=== PATIENT | female | born 1950 | race Hispanic/Latino ===

== ENCOUNTER 2017-04-01 15:47 | Inpatient (IN) | payer MEDICARE, MEDICAID ==
[~2017-04-01] VITALS: Ht 160 cm; Wt 90.7 kg
[~2017-04-01 15:47] MED LIST: (None)10 MG OR; ADLT ASA LOW81 MG OR; ADLT ASA LOW81 MG PO; ALLEGRA-D 2424 HOUR PO; ALPRAZOLAM0.25 M1 OR; AMANTADINE100 MG PO; AMLODIPINE10 MG PO; AMOXICILLIN/CL500 MG PO; AMOXICILLIN250 M1 PO; ASPIRIN81 M1 OR; AUGMENTIN500TAB PO; AUGMENTIN875TAB PO; BACTRIM DS1 TAB PO; BACTROBAN2 % EX; BENTYL10 MG PO; CARAFATE PO; CETIRIZ/PSE1 TAB PO; CIPRO XR500 MG PO; CLONIDINE HCL0.1 MG PO; CLONIDINE0.1 MG OR; CLONIDINE0.1 MG PO; CLONIDINE0.2 MG PO; COZAAR25 MG PO; CYCLOBENZAPR10 MG OR; CYCLOBENZAPR10 MG PO; DICLOXACILL500 MG PO; DIFLUCAN100 MG PO; ENALAPRIL20 MG OR; ENALAPRIL20 MG PO; FLEXERIL PO; FLEXERIL5 MG PO; FLONASE NASAL50 MCG; FLONASE SPRAY50 MCG; FLUARIX QUADRIV1 IN1 IM; FUROSEMIDE40 MG PO; GLIPIZIDE5 MG PO; HYDRALAZINE HCL25 MG PO; HYDRALAZINE25 MG PO; HYDROCHLOROT25 MG PO; LASIX20 MG OR; LEVAQUIN500 MG PO; LEVAQUIN750 MG PO; LIORESAL10 MG/TAB PO; LOPRESSOR25 MG OR; LORAZEPAM0.5 MG PO; LORTAB 10 OR; LORTAB 7.5 PO; LORTAB 7.5-3251 TAB PO; LORTAB 7.57.5 MG PO; LOSARTAN POT100 MG PO; LOSARTAN POT25 MG PO; LOTRISONE TOP; LOVASTATIN20 MG OR; LOVASTATIN40 M1 PO; LOVASTATIN40 MG OR; LOVASTATIN40 MG PO; MECLIZINE12.5 M1 PO; MEDDOSEPAK PO; MEDROL DOSEPAK4 MG PO; METFORMIN500 MG PO; METOPROL TAR100 MG OR; METOPROL TAR100 MG PO; MULT VITAMIN PO; MULTI FOR HER 50+ PO; MULTIVITAMI1 PO; NITRO-DUR0.4 MG/HR TD; NITROGLYCERIN TD; NORCO1 TA1 PO; NORVASC10 M1 PO; NYSTATIN100000 M3 TOP; OXYCOD/APAP1 TA4 PO; OXYCODO-APAP1 TAB OR; OXYCONTIN10 MG PO; PERCOCET 5/325M1 TAB OR; PERCOCET 5/325M1 TAB PO; PERCOCET1 TA2 OR; PERCOCET1 TA4 PO; POT CHLORIDE20 ME3 OR; POT CHLORIDE20 ME3 PO; POTASSIUM CHLO20 MEQ PO; PREVACID15 M1 PO; PRILOSEC20 MG OR; PRILOSEC20 MG/CAP PO; PRILOSEC40 MG PO; PROTONIX40 M2 PO; RANITIDINE150 M1 PO; RANITIDINE150 MG PO; ROBITUSSIN AC10 ML PO; SERTRALINE HCL50 MG PO; TEMAZEPAM15 MG PO; TESSALON PER100 MG PO; TIZANIDINE HCL4 MG PO; TIZANIDINE4 MG PO; TOPROL XL50 MG OR; TRAMADOL HCL50 MG PO; ULTRAM50 MG PO; VIBRAMYCIN100 M1 PO; VIBRAMYCIN100 M2 PO; VICODIN OR; WAL-FEX D 1212 HOUR PO; XANAX0.5 MG OR; XARELTO15 MG PO; ZOFRAN ODT4 MG PO; ZOLOFT100 MG OR; ZOLOFT50 MG OR; ZOLOFT50 MG PO; ZOVIRAX800 MG OR; ZPAK; ZPAK PO; ZYRTEC-D AL1 OR; ZYRTEC-D ALG PO; ZYRTEC10 MG PO
[2017-04-05] VITALS (7 sets, daily range): BP systolic 141–164; BP diastolic 60–87
[2017-04-06] VITALS (7 sets, daily range): BP systolic 119–178; BP diastolic 65–80
[2017-04-06 07:24] LABS: HEMATOCRIT 32.4 % (37.0-47.0); HEMOGLOBIN 10.7 g/dl (12.0-16.0); IMMATURE GRANULOCYTES 0.5 % (0.0-1.0); MEAN CELL VOLUME 89.5 fL CALC (80.0-100.0); MEAN CORPUSCULAR HGB 29.6 pG CALC (26.0-32.0); NEUT# 14.4 thou/uL (2.00-7.15); RED BLOOD COUNT 3.62 mill/uL (4.20-5.60); RED CELL DISTRI WIDTH 12.5 % (11.5-15.5)
[2017-04-06 07:38] LABS: ALBUMIN 3.8 g/dL (3.2-5.0); ALKALINE PHOSPHATASE 65 u/l (38-126); ANION GAP 16 (6-22 (CALC)); BILIRUBIN, TOTAL 0.3 mg/dL (0.0-1.4); BUN 17 mg/dL (8-23); BUN/CREATININE RATIO 25 (12-20 (CALC)); CALCIUM 7.9 mg/dL (8.4-10.2); CARBON DIOXIDE 23 mmol/l (22-30); CHLORIDE 106 mmol/l (95-108); CREATININE 0.7 mg/dL (0.5-1.0); GFR > 60 ML/MIN (>=60 (CALC)); GFR FOR AFR.AMER. > 60 ML/MIN (>=60 (CALC)); GLUCOSE 109 mg/dL (82-115); SGOT/AST 51 u/l (9-36); SGPT/ALT 65 u/l (11-66); SODIUM 141 mmol/l (137-146); TOTAL PROTEIN 6.4 g/dL (6.3-8.2)
[2017-04-07 04:40] VITALS: BP 165/71
[2017-04-07 05:59] LABS: HEMATOCRIT 31.1 % (37.0-47.0); HEMOGLOBIN 10.3 g/dl (12.0-16.0); IMMATURE GRANULOCYTES 0.5 % (0.0-1.0); MEAN CELL VOLUME 88.6 fL CALC (80.0-100.0); MEAN CORPUSCULAR HGB 29.3 pG CALC (26.0-32.0); MEAN CORPUSCULAR HGB CONC 33.1 g/L CALC (32.0-36.0); NEUT# 12.32 thou/uL (2.00-7.15); RED BLOOD COUNT 3.51 mill/uL (4.20-5.60); RED CELL DISTRI WIDTH 12.8 % (11.5-15.5)
[2017-04-07 06:08] LABS: ANION GAP 14 (6-22 (CALC)); BUN 17 mg/dL (8-23); BUN/CREATININE RATIO 21 (12-20 (CALC)); CALCIUM 8.7 mg/dL (8.4-10.2); CARBON DIOXIDE 28 mmol/l (22-30); CHLORIDE 97 mmol/l (95-108); CREATININE 0.8 mg/dL (0.5-1.0); GFR > 60 ML/MIN (>=60 (CALC)); GFR FOR AFR.AMER. > 60 ML/MIN (>=60 (CALC)); GLUCOSE 150 mg/dL (82-115); POTASSIUM 3.4 mmol/l (3.5-5.1); SODIUM 136 mmol/l (137-146)
[2017-04-07 07:54] VITALS: BP 147/73
[2017-04-07 12:52] VITALS: BP 174/81
[2017-04-07 16:15] VITALS: BP 197/84
[2017-04-07 17:15] VITALS: BP 189/84
[2017-04-07 20:29] VITALS: BP 144/66
[2017-04-08] VITALS (7 sets, daily range): BP systolic 128–185; BP diastolic 63–84
[2017-04-08 05:42] LABS: HEMATOCRIT 30.9 % (37.0-47.0); HEMOGLOBIN 10.1 g/dl (12.0-16.0)
== END 2017-04-08 16:55 | DRG 470 ==
LOC: ENPENDDIS → MS2 04-05 07:30
PROVIDERS: ADMIT Orthopaedic Surgery; ATTEND Internal Medicine Geriatric Medicine
PROC: 0SRC0J9 Replacement of Right Knee Joint with Synthetic Substitute, Cemented, Open Approach (ICD-10-PCS; principal; 2017-04-05)
DX: M17.11 Unilateral primary osteoarthritis, right knee (principal); I10 Essential (primary) hypertension; E11.9 Type 2 diabetes mellitus without complications; I25.10 Atherosclerotic heart disease of native coronary artery without angina pectoris
CPT/HCPCS: J1650; J2270

== ENCOUNTER 2018-11-12 17:09 | Observation (INO) | payer MEDICARE ==
[~2018-11-12] VITALS: Ht 160 cm; Wt 94.5 kg
--- NOTE | 2018-11-12 17:10 | NUR ---
PT TO ROOM VIA EMS STRETCHER.
--- NOTE | 2018-11-12 17:30 | NUR ---
PATIENT REPORTS COUGH/COLD SYMPTOMS X1 WEEK, REPORTS BEING IN DOCTOR'S OFFICE, EKG COMPLETED SHOWING A FIB, PATIENT REPORTS NEW ONSET. LUNG SOUNDS CLEAR BILATERALLY. DENIES ANY CHEST PAIN AT THIS TIME. SHOWING A-FIB AT A RATE OF 100-120 BPM. CALL LIGHT WITHIN REACH WILL CONTINUE TO MONITOR.
[2018-11-12] MEDS ORDERED: METOPROL TAR25 MG PO (17:32)
[2018-11-12] MEDS ORDERED: PERCOCET1 TA4 PO (17:35)
[2018-11-12 17:45] LABS: HEMATOCRIT 39.6 % (37.0-47.0); HEMOGLOBIN 12.7 g/dl (12.0-16.0); IMMATURE GRANULOCYTES 0.4 % (0.0-5.0); MEAN CORPUSCULAR HGB 28.5 pG CALC (26.0-32.0); MEAN CORPUSCULAR HGB CONC 32.1 g/L CALC (32.0-36.0); NEUT# 12.25 thou/uL (2.00-7.15); RED BLOOD COUNT 4.45 mill/uL (4.20-5.60); RED CELL DISTRI WIDTH 13.3 % (11.5-15.5)
[2018-11-12 18:04] LABS: ANION GAP 15 (6-22 (CALC)); BUN 28 mg/dL (8-23); BUN/CREATININE RATIO 35 (12-20 (CALC)); CARBON DIOXIDE 25 mmol/l (22-30); CHLORIDE 103 mmol/l (95-108); CREATININE 0.8 mg/dL (0.5-1.0); GFR > 60 ML/MIN (>=60 (CALC)); GFR FOR AFR.AMER. > 60 ML/MIN (>=60 (CALC)); POTASSIUM 3.5 mmol/l (3.5-5.1); SODIUM 139 mmol/l (137-146)
--- NOTE | 2018-11-12 18:30 | NUR ---
PATIENT MEDICATED WITH 10 MG OF CARDIZEM SLOW IVP. TOLERATED WELL.
--- NOTE | 2018-11-12 18:40 | NUR ---
AT BEDSIDE TO DISCUSS RESULTS.
--- NOTE | 2018-11-12 18:42 | NUR ---
BEDSIDE REPORT GIVEN TO INDIRA ZAMORANO. PATIENT'S HR 80-100'S IN A-FIB. CARE RELINQUISHED.
--- NOTE | 2018-11-12 18:43 | NUR ---
IN ROOM INTRODUCED SELF TO PT. NO C/O AT THIS TIME.
--- NOTE | 2018-11-12 19:43 | NUR ---
IN ROOM TO DISCUSS CLINICAL FINDINGS WITH PT. VERBALIZED UNDERSTANDING. PT. ALSO MADE AWARE OF ADMISSION.
--- NOTE | 2018-11-12 20:26 | NUR ---
REPORT GIVEN TO ANTHONY JACOBSON.
--- NOTE | 2018-11-12 20:35 | NUR ---
PT. STATES SHE HAS PAIN UNDER HER LEFT BREAST AND SHE IS ALSO NAUSEADED.
--- NOTE | 2018-11-12 21:01 | NUR ---
ORDERS NOW TO ADMIT PT. TO MS.
--- NOTE | 2018-11-12 21:10 | NUR ---
CARDIZEM GTT ORDERED, TO ICU.
--- NOTE | 2018-11-12 21:14 | NUR ---
TO ICU VIA STRETCHER.
[2018-11-12 21:15] VITALS: BP 168/79
--- NOTE | 2018-11-12 21:15 | NUR ---
PT. ARRIVES VIA STRETCHER FROM ER TO ICU ROOM #3. AWAKE, ALERT, ORIENTED X 3. NO DISTRESS. AMBULATORY WITH STEADY GAIT FROM ER STRETCHER TO ICU BED.
[2018-11-12 21:30] VITALS: BP 161/83
[2018-11-12 21:45] VITALS: BP 177/79
[2018-11-12] MEDS ORDERED: NIFEDIPINE ER60 M1 PO (21:51)
[2018-11-12 22:00] VITALS: BP 149/82
--- NOTE | 2018-11-12 22:59 | NUR ---
CARDIZEM DRIP STARTED AT 10 MG/HR AT THIS TIME. WILL CONTINUE TO ASSESS FOR RATE CONTROL/BP.
[2018-11-12 23:00] VITALS: BP 149/91
--- NOTE | 2018-11-12 23:35 | NUR ---
PT. ASSISTED TO BSC AND BACK TO BED AT THIS TIME. PT. REMAINS STABLE ON THE MONITOR. PT. APPEARS TO HAVE CONVERTED BACK TO SINUS RHYTHM. WILL NOTIFY RESP THERAPY FOR REPEAT EKG.
[2018-11-13] VITALS (18 sets, daily range): BP systolic 144–201; BP diastolic 71–107
--- NOTE | 2018-11-13 01:05 | NUR ---
PT. RESTING IN BED WATCHING TELEVISION AT THIS TIME. CARDIZEM DRIP INFUSING AT 10 MG/HR. REMAINS STABLE IN SINUS RHYTHM AT THIS TIME. BP/HR STABLE.
--- NOTE | 2018-11-13 02:36 | NUR ---
PT. C/O 5/10 HEADACHE AT THIS TIME. CARDIZEM DRIP DECREASED TO 5 MG/HR AT THIS TIME. WILL CONTINUE TO MONITOR. MEDICATED WITH PERCOCET PER PHYSICIAN ORDERS. WILL CONTINUE TO ASSESS FOR IMPROVEMENT IN HEADACHE.
--- NOTE | 2018-11-13 04:05 | NUR ---
LAB AT BEDSIDE TO DRAW PATIENT. REMAINS EASILY AROUSABLE TO LIGHT VERBAL STIMULI. NO DISTRESS.
--- NOTE | 2018-11-13 04:33 | NUR ---
PT. WITH INTERMITTENT COUGHING EPISODES. MILD SPUTUM PRODUCTION. HR REMAINS CONTROLLED SINUS IN THE 60-70'S. CARDIZEM DRIP CONTINUES AT 5 MG/HR. REMAINS IN NO DISTRESS.
[2018-11-13 04:35] LABS: HEMOGLOBIN 12.3 g/dl (12.0-16.0); IMMATURE GRANULOCYTES 0.2 % (0.0-5.0); MEAN CELL VOLUME 88.6 fL CALC (80.0-100.0); MEAN CORPUSCULAR HGB 28.7 pG CALC (26.0-32.0); MEAN CORPUSCULAR HGB CONC 32.4 g/L CALC (32.0-36.0); NEUT# 8.58 thou/uL (2.00-7.15); RED BLOOD COUNT 4.29 mill/uL (4.20-5.60); RED CELL DISTRI WIDTH 13.2 % (11.5-15.5)
[2018-11-13 04:54] LABS: ALBUMIN 3.7 g/dL (3.2-5.0); ALKALINE PHOSPHATASE 95 u/l (38-126); AMYLASE 60 u/l (30-110); ANION GAP 12 (6-22 (CALC)); BILIRUBIN, TOTAL 0.4 mg/dL (0.0-1.4); BUN 24 mg/dL (8-23); BUN/CREATININE RATIO 37 (12-20 (CALC)); CARBON DIOXIDE 27 mmol/l (22-30); CHLORIDE 105 mmol/l (95-108); CREATININE 0.6 mg/dL (0.5-1.0); GFR > 60 ML/MIN (>=60 (CALC)); GFR FOR AFR.AMER. > 60 ML/MIN (>=60 (CALC)); LIPASE 177 u/l (23-300); POTASSIUM 3.5 mmol/l (3.5-5.1); SGOT/AST 25 u/l (9-36); SODIUM 141 mmol/l (137-146); TOTAL PROTEIN 6.4 g/dL (6.3-8.2)
[2018-11-13 04:57] LABS: MAGNESIUM 1.4 mg/dL (1.6-2.3)
--- NOTE | 2018-11-13 06:21 | NUR ---
RT AT BEDSIDE FOR AM EKG. PT. REMAINS IN SINUS RHYTHM IN THE 70'S AT THIS TIME. NO DISTRESS NOTED. BP SLIGHTLY ELEVATED. WILL CONTINUE TO MONITOR. CARDIZEM DRIP CONTINUES AT 5 MG/HR AT THIS TIME.
--- NOTE | 2018-11-13 07:52 | NUR ---
PT SLEEPING. EYES CLOSED. RESPIRATIONS EVEN/UNLABORED. CALLBELL W/IN REACH. BREAKFAST TRAY SET ON BEDSIDE TABLE.
--- NOTE | 2018-11-13 08:10 | NUR ---
PT ADMITTED FOR NEW ONSET AFIB. PT NSR ON TELE NOW. CARDIZEM WAS RUNNING AT 5 BUT STOPPED TO ASSESS RHYTHM. CARDIZEM DRIP STOPPED. MAGNESIUM DRIP STARTED. PT DENIES PAIN. DENIES SOB. DENIES N/V/D.
--- NOTE | 2018-11-13 08:26 | NUR ---
PT AT 100% OF BREAKFAST. MINIMAL ASSIST UP TO BSC FOR URINATION. STEADY GAIT.
--- NOTE | 2018-11-13 08:52 | NUR ---
DIETARY @BEDSIDE FOR MEAL PREFERENCES.
--- NOTE | 2018-11-13 09:18 | NUR ---
PT MEDICATED FOR C/O HEADACHE 02/23 ORDERED; CALL TREVIZO WITHIN REACH; NO OTHER COMPLAINTS VOICED; WILL CONTINUE TO MONITOR.
--- NOTE | 2018-11-13 09:28 | NUR ---
PT NSR ON MONITOR. HR 84. NO S/S OF DISTRESS AT THIS TIME. CALLBELL W/IN REACH.
--- NOTE | 2018-11-13 09:45 | NUR ---
2 NEG MRSA SWABS. 3RD SWAB COLLECTED.
--- NOTE | 2018-11-13 09:59 | NUR ---
son called from [place] with code to check on mom. son updated on pts status then transfered him to talk to her.
--- NOTE | 2018-11-13 10:20 | NUR ---
MINIMAL ASSISTANCE UP TO BSC.
--- NOTE | 2018-11-13 10:26 | NUR ---
DR RODRIGUEZ @BEDSIDE.
--- NOTE | 2018-11-13 10:53 | NUR ---
URINE COLLECTED FOR SAMPLE. PT STATE SHE HAD AN U/S ON HER KIDNEYS ON 11/03/[address] MULTANI. AWARE. UPDATED PT ON UPCOMING TESTS ORDERED.
--- NOTE | 2018-11-13 11:08 | NUR ---
DR MULTANI @BEDSIDE WITH PT.
--- NOTE | 2018-11-13 11:15 | NUR ---
LEODAN, CASE MANAGEMENT, @BEDSIDE WITH PT.
--- NOTE | 2018-11-13 11:33 | NUR ---
LAB @BEDSIDE FOR DRAW.
--- NOTE | 2018-11-13 11:40 | NUR ---
PT SITTING UP IN BED, EATING LUNCH. PT FREQUENTLY TALKING ON CELLPHONE.
[2018-11-13 11:59] LABS: URINE BILIRUBIN - DIPSTICK NEGATIVE (NEGATIVE); URINE BLOOD DIPSTICK NEGATIVE (NEGATIVE); URINE COLOR YELLOW; URINE GLUCOSE - DIPSTICK NEGATIVE (NEGATIVE); URINE KETONE NEGATIVE (NEGATIVE); URINE LEUK ESTERASE NEGATIVE (Negative); URINE NITRITE - DIPSTICK NEGATIVE (Negative); URINE PROTEIN - DIPSTICK TRACE mg/dL (NEG-TRACE); URINE UROBILINOGEN - DIPSTICK 0.2 E.U./dL (0.2)
[2018-11-13 12:00] LABS: URINE CLARITY CLEAR
[2018-11-13 12:23] LABS: ALBUMIN 4.1 g/dL (3.2-5.0); BUN 18 mg/dL (8-23); CARBON DIOXIDE 27 mmol/l (22-30); CHLORIDE 100 mmol/l (95-108); CREATININE 0.6 mg/dL (0.5-1.0); GFR > 60 ML/MIN (>=60 (CALC)); GFR FOR AFR.AMER. > 60 ML/MIN (>=60 (CALC)); POTASSIUM 3.5 mmol/l (3.5-5.1); SODIUM 139 mmol/l (137-146)
--- NOTE | 2018-11-13 13:30 | NUR ---
PT BRUSHING OWN TEETH & PARTIAL BATH. CHANGED GOWN.
--- NOTE | 2018-11-13 13:37 | NUR ---
PT OFF UNIT FOR CATSCAN BY WC.
--- NOTE | 2018-11-13 13:55 | NUR ---
HR & HOME HEALTH ADMIN AT BEDSIDE FOR ROUNDING.
--- NOTE | 2018-11-13 13:59 | NUR ---
PT RETURNED FROM RADIOLOGY. ON MONITOR & IVF. NO NEEDS AT THIS TIME. CALLBELL W/IN REACH. PT DENIES S/S OF AFIB. WILL CONTINUE TO MONITOR.
--- NOTE | 2018-11-13 14:34 | NUR ---
US @BEDSIDE FOR ECHO
--- NOTE | 2018-11-13 15:14 | NUR ---
DR WEBSTER DENTURES LAB TECHNICIAN @BEDSIDE ASSESSING PT.
--- NOTE | 2018-11-13 17:08 | NUR ---
PT EDUCATED ON NEW BP MEDS & ETIOLOGY. FAMILY @BEDSIDE WILL GET PT A BP "MACHINE" FOR AT HOME.
--- NOTE | 2018-11-13 17:44 | NUR ---
BIG FAMILY GATHERING IN ROOM. PT SITTING UP IN BED, EATING DINNER. DENIES S/S OF HYPERTENSION.
--- NOTE | 2018-11-13 18:11 | NUR ---
PT ASSISTED UP TO BSC FOR URINATION.
--- NOTE | 2018-11-13 18:20 | NUR ---
PT REQUEST TAPE AROUND IV JLOOP TO FINGER SO HE DOESNT PULL IT OUT.
--- NOTE | 2018-11-13 18:50 | NUR ---
REPORT FROM Berna ROSALES RN. ASSUMED PT. CARE.
--- NOTE | 2018-11-13 20:05 | NUR ---
PT. RESTING IN BED WITH EYES CLOSED IN NO DISTRESS. SNORING RESPIRATIONS. EASILY AROUSABLE TO LIGHT VERBAL STIMULI. ALERT AND ORIENTED X 3. SKIN WARM AND DRY. AFEBRILE. LUNGS CTA. S1/S2 NOTED. BOWEL SOUNDS PRESENT IN ALL QUADS. NO EDEMA NOTED. DISTIL PULSES INTACT. DENIES COMPLAINTS OF HEADACHE OR OTHER PAIN AT THIS TIME. MAE. GIBBS. CALL LIGHT REMAINS WITHIN REACH. UPDATED ON PLAN OF CARE. WILL CONTINUE TO ASSESS.
--- NOTE | 2018-11-13 22:04 | NUR ---
PT. RESTING IN BED WITH EYES CLOSED IN NO DISTRESS. REMAINS SINUS ON THE MONITOR. BP IMPROVED AT THIS TIME. WILL CONTINUE TO ASSESS.
[2018-11-14] VITALS (18 sets, daily range): BP systolic 120–202; BP diastolic 63–95
--- NOTE | 2018-11-14 | NUR ---
PT. CONTNIUES WITH SINUS RHYTHM AT THIS TIME. DENIES COMPLAINTS OF PAIN OR NEED. REMAINS EASILY AROUSABLE TO LIGHT VERBAL STIMULI. CALL LIGHT REMAINS WIHTIN REACH. WILL CONTINUE TO ASSESS.
--- NOTE | 2018-11-14 01:05 | NUR ---
PT. TO BEDSIDE COMMODE. CONTINUES TO DENY COMPLAINS OF PAIN OR NEED.
--- NOTE | 2018-11-14 02:58 | NUR ---
PT. ASSISTED TO BSC. REMAINS ALERT AND ORIENTED X 3. RESPS REMAIN EVEN AND UNLABORED. SKIN WARM AND DRY. APPROX 700 CC OUT AT THIS TIME. REMAIN IN SINUS RHYTHM.
[2018-11-14 05:50] LABS: HEMATOCRIT 37.3 % (37.0-47.0); HEMOGLOBIN 12.1 g/dl (12.0-16.0); IMMATURE GRANULOCYTES 0.3 % (0.0-5.0); MEAN CELL VOLUME 89.2 fL CALC (80.0-100.0); MEAN CORPUSCULAR HGB 28.9 pG CALC (26.0-32.0); MEAN CORPUSCULAR HGB CONC 32.4 g/L CALC (32.0-36.0); NEUT# 8.1 thou/uL (2.00-7.15); RED BLOOD COUNT 4.18 mill/uL (4.20-5.60); RED CELL DISTRI WIDTH 13.2 % (11.5-15.5)
[2018-11-14 05:54] LABS: ALBUMIN 3.6 g/dL (3.2-5.0); ALKALINE PHOSPHATASE 76 u/l (38-126); ANION GAP 12 (6-22 (CALC)); BILIRUBIN, TOTAL 0.4 mg/dL (0.0-1.4); BUN 17 mg/dL (8-23); BUN/CREATININE RATIO 29 (12-20 (CALC)); CARBON DIOXIDE 27 mmol/l (22-30); CHLORIDE 106 mmol/l (95-108); CREATININE 0.6 mg/dL (0.5-1.0); GFR > 60 ML/MIN (>=60 (CALC)); GFR FOR AFR.AMER. > 60 ML/MIN (>=60 (CALC)); MAGNESIUM 1.5 mg/dL (1.6-2.3); POTASSIUM 3.8 mmol/l (3.5-5.1); SGOT/AST 29 u/l (9-36); SODIUM 141 mmol/l (137-146); TOTAL PROTEIN 6.2 g/dL (6.3-8.2)
--- NOTE | 2018-11-14 07:16 | NUR ---
pt awake in bed; no apparent distress noted; pt offers no complaints; assessment completed at this time; pt alert and oriented; admits to improving headache; denies back or neck pain at current; no n/v noted; resp even and unlabored; lungs clear/ deny sob; skin color wnl; ra; hr reg; no edema noted; sr on monitor; abd soft with bs present; no bm noted per parts data writer; pt voiding clear yellow urine without complication; bsc; #18 ems site intact to rw; flushed and patent; no redness or edema noted at site; am meds/ plan of care explained; accucheck 96; call light within reach; will continue to monitor
--- NOTE | 2018-11-14 08:00 | NUR ---
awake in bed; offers no complaints; sr on monitor; iv intact; call light within reach; will continue to monitor
--- NOTE | 2018-11-14 10:08 | NUR ---
resting with eyes closed; no apparent distress noted; sr on monitor; iv intact; call light within reach; will continue to monitor
--- NOTE | 2018-11-14 10:16 | NUR ---
Dr Rasheed present at bedside to assess pt and discuss plan of care
--- NOTE | 2018-11-14 11:00 | NUR ---
Dr Finley present at bedside to assess pt and discuss plan of care
--- NOTE | 2018-11-14 11:51 | NUR ---
awake; sitting on side of bed eating lunch; no apparent distress noted; pt offers no complaints; sister present at bedside; sr on monitor; iv intact; ra; pt deny needs; call light within reach; will continue to monitor
--- NOTE | 2018-11-14 13:30 | NUR ---
pt sitting on side of bed with complaints of nausea; vomiting noted; emess bag and wet wash cloth provided; bp elevated; will continue to monitor closely
--- NOTE | 2018-11-14 14:00 | NUR ---
resting in bed with eyes closed; no apparent distress noted; sr on monitor; bp stable; resp even and unlabored; call light within reach; will continue to monitor
--- NOTE | 2018-11-14 15:25 | NUR ---
awake in bed; visitors present at bedside; pt deny needs; no apparent distress noted; sr on monitor; iv intact; call light within reach; will continue to monitor
--- NOTE | 2018-11-14 15:51 | NUR ---
awake in bed; multiple visitors at bedside; pt offers no complaints; denies pain; no complaints of nausea noted; sr on monitor; iv intact; call light within reach; will continue to monitor
--- NOTE | 2018-11-14 17:20 | NUR ---
accucheck 105; no interventions needed
--- NOTE | 2018-11-14 17:58 | NUR ---
resting in bed; offers no complaints; no apparent distress noted; sr on monitor; iv intact; call light within reach
--- NOTE | 2018-11-14 19:15 | NUR ---
PATIENT RESTING IN BED WATCHING TV WITH SON AT THE BEDSIDE. RESP EVEN AND UNLABORED. ELEVATED BP NOTED. NO S/S OF DISTRESS NOTED. PATIENT ALERT AND ORIENTED. C/O A HEADACHE, WILL MEDICATE PER MD ORDERS. #20 RIGHT HAND, FLUSHED AND FREE OF REDNESS/SWELLING. LUNGS CLEAR, BS PRESENT, SR ON TELE, AND NO EDEMA PRESENT. PATIENT STATES LAST BM WAS 11/13/18. PLAN OF CARE DISCUSSED. PATIENT INFORMED TO CALL WITH ANY QUESTIONS OR CONCERNS. FALL PRECAUTIONS IN PLACE. CALL LIGHT WITHIN REACH. [facility]
--- NOTE | 2018-11-14 19:45 | NUR ---
ACCU CHECK 119
--- NOTE | 2018-11-14 20:04 | NUR ---
HS MEDICATIONS GIVEN EARLY DUE TO PATIENT'S BP.
--- NOTE | 2018-11-14 21:39 | NUR ---
MEDICATED PER MD ORDERS FOR SBP >180
[2018-11-15] VITALS (19 sets, daily range): BP systolic 118–195; BP diastolic 52–98
--- NOTE | 2018-11-15 00:09 | NUR ---
PATIENT AWAKE AND RESTING IN BED WITH THE TV ON. RESP EVEN AND UNLABORED. NO S/S OF DISTRESS NOTED.
--- NOTE | 2018-11-15 02:00 | NUR ---
PATIENT UP TO USE BSC, COMMODE EMPITED AT THIS TIME. RESP EVEN AND UNLABORED. NO S/S OF DISTRESS NOTED.
--- NOTE | 2018-11-15 03:54 | NUR ---
PTIENT RESTIGN WITH EYES CLOSED. RESP EVEN AND UNLABORED. NO S/S OF DISTRESS.
--- NOTE | 2018-11-15 05:49 | NUR ---
PATIENT MEDICATED FOR HIGH BP PER MD ORDERS.
--- NOTE | 2018-11-15 07:00 | NUR ---
resting in bed with eyes closed; easily aroused; offers no complaints; assessment completed at this time; pt alert and oriented; denies pain; no n/v noted; resp even and unlabored; lungs clear; skin color wnl; ra; hr reg; strong pulses; no edema noted; sr on monitor; abd soft with bs present; no bm noted per press writer; no urine to inspect at this time; #20 flushed and patent to rh; no redness or edema noted at site; plan of care/am meds explained; call light within reach; will continue to monitor
--- NOTE | 2018-11-15 08:05 | NUR ---
awake in bed; offers no complaints; no distress noted; sr on monitor; iv intact; call light within reach; will continue to monitor
--- NOTE | 2018-11-15 09:45 | NUR ---
Ayaka Fernandez NP present at bedside to assess pt and discuss plan of care
[2018-11-15 10:06] LABS: CALCULATED LDLCHOLESTEROL 79 mg/dL (62-129 (CALC)); CHOLESTEROL HDL RATIO 3.5 (<4.4 (CALC)); HDL CHOLESTEROL 44 mg/dL (>=40); TOTAL CHOLESTEROL 154 mg/dl (0-199); TOTAL TRIGLYCERIDES 154 mg/dl (30-149); VLDL CHOLESTROL 31 mg/dl (1-41 (CALC))
--- NOTE | 2018-11-15 10:15 | NUR ---
awake in bed; offers no complaints; no apparent distress noted; sr on monitor; denies pain, n/v; iv intact; plan of care/meds explained; call light within reach; will continue to monitor
--- NOTE | 2018-11-15 12:10 | NUR ---
awake in bed; assist to bsc; offers no complaints; iv flushed and patent; no redness or edema noted at site; sr on monitor; am care offered; pt deny needs; call light within reach; will continue to monitor
--- NOTE | 2018-11-15 13:09 | NUR ---
Dr Vargas present at bedside to assess pt and discuss plan of care
--- NOTE | 2018-11-15 14:01 | NUR ---
awake in bed conversing on cell phone; no apparent; distress noted; offers no complaints; iv intact; sr on monitor; will continue to monitor
--- NOTE | 2018-11-15 16:05 | NUR ---
awake in bed; offers no complaints; denies pain; no n/v sr on monitor; iv intact; call light within reach; will continue to monitor
--- NOTE | 2018-11-15 18:02 | NUR ---
awake in bed; no apparent distress noted; pt offers no complaints; iv intact; sr on monitor; tolerated meals; denies pain; bsc; call light within reach
--- NOTE | 2018-11-15 19:10 | NUR ---
awake. denies distress. manager cardiac shows sinus rhythm. #20 rt hand saline lock. po fluids taken fair. voids per bsc. fall precautions & contact isolation conts.
--- NOTE | 2018-11-15 22:00 | NUR ---
watching tv. no c/o voiced. color television console monitor shows sinus rhythm.
[2018-11-16] VITALS (7 sets, daily range): BP systolic 123–178; BP diastolic 46–91
--- NOTE | 2018-11-16 00:01 | NUR ---
eyes closed. no distress.
--- NOTE | 2018-11-16 02:00 | NUR ---
resting quietly. resps even & unlabored. no apparent distress. telemetry monitor shows sinus pablo.
--- NOTE | 2018-11-16 04:00 | NUR ---
eyes closed. no distress. equipment monitor phototypesetting shows sinus pablo.
--- NOTE | 2018-11-16 06:00 | NUR ---
no acute change in condition. collar baster jumpbasting shows sinus rhythm.
--- NOTE | 2018-11-16 07:00 | NUR ---
awake in bed; no apparent distress noted; pt offers no complaints; denies pain; no n/v noted at present; assessment completed at this time; pt alert and oriented; resp even and unlabored; lungs clear; skin color wnl; ra; hr reg; strong pulses; no edema noted; sr on monitor; abd soft with bs present; no bm noted per auto service writer; last bm 11/15/18; voiding clear yellow urine without complication; bsc; #20 flushed and patent to rh; saline locked; no redness or edema noted at site; plan of care/ am meds explained; call light within reach; will continue to monitor
--- NOTE | 2018-11-16 08:10 | NUR ---
awake in bed; offers no complaints; deny needs; sr on monitor; iv intact; will continue to monitor
[2018-11-16 09:27] LABS: HEMOGLOBIN 12.5 g/dl (12.0-16.0); MEAN CELL VOLUME 87.8 fL CALC (80.0-100.0); MEAN CORPUSCULAR HGB 28.2 pG CALC (26.0-32.0); MEAN CORPUSCULAR HGB CONC 32.1 g/L CALC (32.0-36.0); RED BLOOD COUNT 4.44 mill/uL (4.20-5.60); RED CELL DISTRI WIDTH 13.3 % (11.5-15.5)
--- NOTE | 2018-11-16 09:28 | NUR ---
Ayaka Fernandez NP present at bedside to assess pt and discuss plan of care
[2018-11-16 09:53] LABS: ANION GAP 15 (6-22 (CALC)); BUN 20 mg/dL (8-23); BUN/CREATININE RATIO 29 (12-20 (CALC)); CARBON DIOXIDE 27 mmol/l (22-30); CHLORIDE 99 mmol/l (95-108); CREATININE 0.7 mg/dL (0.5-1.0); GFR > 60 ML/MIN (>=60 (CALC)); GFR FOR AFR.AMER. > 60 ML/MIN (>=60 (CALC)); MAGNESIUM 1.6 mg/dL (1.6-2.3); SODIUM 137 mmol/l (137-146)
--- NOTE | 2018-11-16 10:15 | NUR ---
resting in bed with eyes closed; no apparent distress noted; resp unlabored; iv intact; sr on monitor; call light within reach; will continue to monitor
--- NOTE | 2018-11-16 11:23 | NUR ---
bath offered; refused at this time; pt awaiting MD for possible discharge
--- NOTE | 2018-11-16 12:07 | NUR ---
Dr Vargas and JUAN ANTONIO Fernandez present at bedside to assess pt and discuss plan of care
--- NOTE | 2018-11-16 12:10 | NUR ---
awake in bed; no apparent distress noted; pt offers no complaints; iv intact; no redness or edema noted at site; sb-sr on monitor; call light within reach; will continue to monitor
[2018-11-16] MEDS ORDERED: SPIRONOLACT50 M1 PO (12:41)
[2018-11-16] MEDS ORDERED: ELIQUIS5 MG PO (12:41)
[2018-11-16] MEDS ORDERED: CARDIZEM CD120 M1 PO (12:41)
[2018-11-16] MEDS ORDERED: HYDRALAZINE100 MG PO (12:41)
--- NOTE | 2018-11-16 13:40 | NUR ---
Discharge instructions given. Patient verbalizes understanding of same. Discharged in stable condition via Wheelchair to Home with family. All belongings sent with pt.
== END 2018-11-16 13:40 | disposition home or self-care (01) ==
LOC: ED 17:09 → ED-I 18:29 → ED 18:38 → ICU 18:48
PROVIDERS: Family Medicine; Internal Medicine Nephrology; Nurse Practitioner Family; ADMIT Internal Medicine Nephrology; ATTEND Internal Medicine Nephrology
DX: I48.0 Paroxysmal atrial fibrillation (principal); I10 Essential (primary) hypertension; I16.0 Hypertensive urgency; E11.9 Type 2 diabetes mellitus without complications; I25.10 Atherosclerotic heart disease of native coronary artery without angina pectoris; E78.5 Hyperlipidemia, unspecified; E83.42 Hypomagnesemia; M19.90 Unspecified osteoarthritis, unspecified site; E66.9 Obesity, unspecified; I34.0 Nonrheumatic mitral (valve) insufficiency; Z68.36 Body mass index [BMI] 36.0-36.9, adult; Z95.5 Presence of coronary angioplasty implant and graft; Z79.84 Long term (current) use of oral hypoglycemic drugs
CPT/HCPCS: J3475

== ENCOUNTER 2018-11-29 10:53 | Emergency (ER) | payer MEDICARE, MEDICAID ==
[~2018-11-29] VITALS: Ht 160 cm; Wt 93.6 kg
[~2018-11-29 10:53] MED LIST changes: +CARDIZEM CD120 M1 PO; +ELIQUIS5 MG PO; +HYDRALAZINE100 MG PO; +METOPROL TAR25 MG PO; +NIFEDIPINE ER60 M1 PO; +SPIRONOLACT50 M1 PO
[2018-11-29 11:50] VITALS: BP 175/87
== END 2018-11-29 11:50 | disposition home or self-care (01) ==
LOC: ED 10:53
PROC: 0HQ5XZZ Repair Chest Skin, External Approach (ICD-10-PCS; principal; 2018-11-29)
DX: S21.112A Laceration without foreign body of left front wall of thorax without penetration into thoracic cavity, initial encounter (principal); R58 Hemorrhage, not elsewhere classified; W50.4XXA Accidental scratch by another person, initial encounter; Y92.009 Unspecified place in unspecified non-institutional (private) residence as the place of occurrence of the external cause; Z79.01 Long term (current) use of anticoagulants; I10 Essential (primary) hypertension

== ENCOUNTER 2020-02-20 08:26 | Inpatient (IN) | payer MEDICARE ==
[2020-02-20] VITALS (23 sets, daily range): BP systolic 134–233; BP diastolic 59–123
[~2020-02-20] VITALS: Ht 160 cm; Wt 98.1 kg
--- NOTE | 2020-02-20 08:26 | NUR ---
PATIENT TO ROOM6 FOR BEDSIDE TRIAGE AND PHYSICIAN AT BEDSIDE
--- NOTE | 2020-02-20 08:30 | NUR ---
EDP AT BEDSIDE, RESP TACHYPNEIC, LUNGS SOUNDS WITH POOR AERATION, O2 SAT 89% ON RA. PT STATES SHE AWOKE VERY SOB. JESSICA COLD OR COUGH. NO VISIBLE SWELLING. AFEBRILE
--- NOTE | 2020-02-20 08:57 | NUR ---
PT SITTING UPRIGHT, SKIN DRY, RESP LESS LABORED, TOELRATIGN BIPAP WELL. O2 SAT 98%. IV FLUIDS AND MEDS INFUSING WELL.
[2020-02-20 08:59] LABS: HEMOGLOBIN 12.9 g/dl (12.0-16.0); IMMATURE GRANULOCYTES 0.3 % (0.0-5.0); MEAN CORPUSCULAR HGB 27.7 pG CALC (26.0-32.0); MEAN CORPUSCULAR HGB CONC 31.5 g/dL CAL (32.0-36.0); NEUT# 9.08 thou/uL (2.00-7.15); RED BLOOD COUNT 4.66 mill/uL (4.20-5.60); RED CELL DISTRI WIDTH 13.5 % (11.5-15.5)
[2020-02-20 09:18] LABS: ALBUMIN 4.5 g/dL (3.2-5.0); ANION GAP 12 (6-22 (CALC)); BILIRUBIN, TOTAL 0.5 mg/dL (0.0-1.4); BUN 19 mg/dL (8-23); BUN/CREATININE RATIO 24 (12-20 (CALC)); CARBON DIOXIDE 31 mmol/l (22-30); CHLORIDE 102 mmol/l (95-108); CREATININE 0.8 mg/dL (0.5-1.0); D-DIMER 0.58 mg/L (0.19-0.60); GFR > 60 ML/MIN (>=60 (CALC)); GFR FOR AFR.AMER. > 60 ML/MIN (>=60 (CALC)); INTERNATIONAL NORMALIZED RATIO 1.1 RATIO (0.7-1.3); POTASSIUM 4.1 mmol/l (3.5-5.1); PROTHROMBIN TIME 11.5 SECONDS (9.0-12.5); SODIUM 140 mmol/l (137-146)
[2020-02-20 09:22] LABS: ALKALINE PHOSPHATASE 121 u/l (38-126); SGOT/AST 74 u/l (9-36); TOTAL PROTEIN 7.7 g/dL (6.3-8.2)
--- NOTE | 2020-02-20 10:00 | NUR ---
RECIEVED REPORT BY XIOMARA Coronel
--- NOTE | 2020-02-20 11:00 | NUR ---
PT ON BIPAP, AND VITALS WNL. PT DENIES ANY DISTRESS. SHE IS NOTIFIED OF PENDING TRANSPORTATION TO RADIOLOGY FOR CT. PT VERBALIZED UNDERSTANDING. CALL LIGHT WITHIN REACH
--- NOTE | 2020-02-20 11:45 | NUR ---
PT REMOVED OFF OF BIPAP MACHINE AND PLACED ON HIGH FLOW O2 NC BY RESPIRATORY. PT NOTIFIED OF SIGNS OF SOB AND CALL LIGHT WITHIN REACH FOR IF ASSISTANCE IS NEEDED AND IF THOSE SIGNS ARISE.
[2020-02-20 12:03] LABS: URINE BILIRUBIN - DIPSTICK NEGATIVE (NEGATIVE); URINE BLOOD DIPSTICK NEGATIVE (NEGATIVE); URINE COLOR YELLOW; URINE GLUCOSE - DIPSTICK NEGATIVE (NEGATIVE); URINE KETONE NEGATIVE (NEGATIVE); URINE LEUK ESTERASE NEGATIVE (NEGATIVE); URINE NITRITE - DIPSTICK NEGATIVE (Negative); URINE PROTEIN - DIPSTICK 30 mg/dL (NEG-TRACE); URINE SPECIFIC GRAVITY 1.015; URINE UROBILINOGEN - DIPSTICK 0.2 E.U./dL (0.2)
[2020-02-20 12:13] LABS: URINE SQUAMOUS EPITHELIAL CELL FEW EPI/hpf (0-FEW)
[2020-02-20 12:14] LABS: URINE MUCUS FEW hpf (NONE-FEW)
--- NOTE | 2020-02-20 12:30 | NUR ---
PT RESTING ON STRETCHER, DENIES ANY NEEDS. SHE IS NOTIFIED OF PENDING ADMISSION
[2020-02-20] MEDS ORDERED: COZAAR50 MG PO (12:55)
[2020-02-20] MEDS ORDERED: FUROSEMIDE20 MG PO (13:00)
--- NOTE | 2020-02-20 13:40 | NUR ---
CALLED SATURNINO FOR REPORT
--- NOTE | 2020-02-20 14:10 | NUR ---
TRANSPORTED PT TO ICU STABLE AND IN NO DISTRESS. CARE ASSUMED TO SATURNINO Admission Note Report Given to: Transported by: Wheelchair X Stretcher Transported with: X Nurse Transporter X Patent IV X O2 X Licensed Practical Nurse Clinic Nurse Location: X ICU [facility]
--- NOTE | 2020-02-20 14:45 | NUR ---
female pt received to ICU bed 8 via stretcher accompained by Magaly Castro RN in stable condition; ambulatory to bsc then bed with steady gait; admission assessment completed at this time; pt alert and oriented; denies pain; no n/v noted; c/c of sob starting at 0500 this am; resp even and unlabored; lungs clear/ rhonchi bases; skin color wnl; o2 per nc hi kylie at 10L; streaming media specialist cough noted; hr reg; strong pulses; no edema noted; sr on monitor; abd soft/ distended with bs present; formed bm noted; pt voiding without complication; bsc; #18 patent to rac with ivf infusing without complication; #20 in lw flushed and patent; plan of care/ meds explained; precautions explained; call light within reach; will continue to monitor
--- NOTE | 2020-02-20 15:15 | NUR ---
Dr Vargas called per staff in regards to cozaar order; pt states she normally takes 100mg of cozaar; orders received and on chart
--- NOTE | 2020-02-20 15:45 | NUR ---
Dr Vargas notified per staff with elevated bp of 226/116; MD aware pt received apresoline 1344; also informed of ivf/ bolus infusing (initiated in ER); orders received to discontinue IVf and give additional apresoline;
--- NOTE | 2020-02-20 16:00 | NUR ---
PT MEDICATED WITH HYDRALAZINE 10MG IV PER MD ORDER FOR ADDITIONAL DOSE. PURE WICK PLACED. PT TOLERATED WELL.
--- NOTE | 2020-02-20 16:20 | NUR ---
awake in bed; no apparent distress noted; pt offers no complaints; iv intact; sr on monitor; RT at bedside; o2 titrated to 5L high flow; call light within reach; will continue to monitor
--- NOTE | 2020-02-20 17:14 | NUR ---
Dr Vargas called per staff in regards to sustained elevated BP and accuchecks; manual BP 220/115; accucheck 223; orders received and on chart
--- NOTE | 2020-02-20 18:01 | NUR ---
awake in bed eating dinner; no apparent distress noted; pt offers no complaints; iv intact; cardene gtt infusing at 5mg/hr; no redness or edema noted at site; sr on monitor; o2 per nc; pt deny needs; call light within reach
--- NOTE | 2020-02-20 18:38 | NUR ---
pt belongings and home meds released with family to take home as per request;
--- NOTE | 2020-02-20 19:30 | NUR ---
awake. watching tv. denies resp diff. o2 cont per nc. beam builder shows sinus rhythm hr 88. #20 lt wrist saline lock. #18 lac cardene gtt infusing @ 2.5mg/hr. po fluids taken well. pure wick cath in place. urine clear yellow.
--- NOTE | 2020-02-20 19:30 | NUR ---
fall & air/contact precautions cont.
--- NOTE | 2020-02-20 21:00 | NUR ---
bp 136/63. sachin mireles/neftali.
[2020-02-21] VITALS (21 sets, daily range): BP systolic 124–176; BP diastolic 59–93
--- NOTE | 2020-02-21 00:01 | NUR ---
eyes closed. no distress. monitoring analyst shows sinus rhythm pacs hr 68
--- NOTE | 2020-02-21 02:00 | NUR ---
resting quietly. resps even & unlabored. no apparent distress.
--- NOTE | 2020-02-21 04:30 | NUR ---
blood drawn & sent to lab.
[2020-02-21 05:08] LABS: HEMATOCRIT 35.8 % (37.0-47.0); HEMOGLOBIN 11.7 g/dl (12.0-16.0); IMMATURE GRANULOCYTES 0.7 % (0.0-5.0); MEAN CELL VOLUME 85.9 fL CALC (80.0-100.0); MEAN CORPUSCULAR HGB 28.1 pG CALC (26.0-32.0); MEAN CORPUSCULAR HGB CONC 32.7 g/dL CAL (32.0-36.0); NEUT# 12.24 thou/uL (2.00-7.15); RED BLOOD COUNT 4.17 mill/uL (4.20-5.60); RED CELL DISTRI WIDTH 13.7 % (11.5-15.5)
[2020-02-21 05:22] LABS: ALKALINE PHOSPHATASE 91 u/l (38-126); ANION GAP 12 (6-22 (CALC)); BILIRUBIN, TOTAL 0.5 mg/dL (0.0-1.4); BUN 28 mg/dL (8-23); BUN/CREATININE RATIO 35 (12-20 (CALC)); C-REACTIVE PROTEIN 2.4 mg/dL (0-0.9); CARBON DIOXIDE 28 mmol/l (22-30); CHLORIDE 99 mmol/l (95-108); CREATININE 0.8 mg/dL (0.5-1.0); GFR > 60 ML/MIN (>=60 (CALC)); GFR FOR AFR.AMER. > 60 ML/MIN (>=60 (CALC)); POTASSIUM 3.4 mmol/l (3.5-5.1); SGOT/AST 37 u/l (9-36); SODIUM 137 mmol/l (137-146); TOTAL PROTEIN 6.9 g/dL (6.3-8.2)
--- NOTE | 2020-02-21 06:00 | NUR ---
eyes closed. no distress. air intelligence officer shows sinus rhythm hr 62.
--- NOTE | 2020-02-21 07:20 | NUR ---
pt resting in bed with eyes closed; no apparent distress noted; easily aroused; pt offers no complaints; assessment completed at this time; pt alert and oriented; denies pain; no n/v noted; resp even and unlabored; lungs clear; skin color wnl; o2 per nc at 5L high flow; interventional radiology rn cough noted; hr reg; strong pulses; no edema noted; sr on monitor; abd soft with bs present; no bm noted per commercial underwriter; purewick intact; no urine to inspect at this time; bsc; #18 to rac, #20 to lw; sites flushed and patent; no redness or edema noted at site; plan of care/ am meds explained; call light within reach; will continue to monitor
--- NOTE | 2020-02-21 08:00 | NUR ---
awake in bed; offers no complaints; set up for breakfast; purewick removed; bsc in place; sr on monitor; call light within reach; will continue to monitor
--- NOTE | 2020-02-21 09:40 | NUR ---
Dr Vargas present at bedside to assess pt and discuss plan of care
--- NOTE | 2020-02-21 10:00 | NUR ---
resting in bed; no apparent distress noted; pt offers no complaints; iv intact and patent; abt infusing without complication; sr/pac on monitor; o2 per nc; call light within reach; will continue to monitor
--- NOTE | 2020-02-21 12:20 | NUR ---
awake in bed; no apparent distress noted; pt offers no complaints; o2 per nc; sr/pac on monitor; iv intact; call light within reach; will continue to monitor
--- NOTE | 2020-02-21 14:07 | NUR ---
resting in bed with eyes closed; no apparent distress noted; resp even and unlabored; iv's intact; o2 per nc; sr/pac on monitor; call light within reach; will continue to monitor
--- NOTE | 2020-02-21 15:43 | NUR ---
o2 titrated to 3L NC; will continue to monitor
--- NOTE | 2020-02-21 16:15 | NUR ---
awake; staff at bedside for asssited bath; complete linen change; sr on on monitor; o2 per nc at 3L o2 sat 98%; no exertional sob noted; call light within reach; will continue to monitor
--- NOTE | 2020-02-21 18:04 | NUR ---
awake in bed; offers no complaints; iv's intact and patent; no redness or edema noted at site; afib on monitor; deny needs; call light within reach
--- NOTE | 2020-02-21 19:30 | NUR ---
awakens easily. denies distress. court recording monitor shows a fib hr 96. #18 rac & #20 lt wrist saline locks. po fluids taken well. voids per bsc. fall, air/contact precautions cont.
--- NOTE | 2020-02-21 22:00 | NUR ---
eyes closed. no distress. teletypesetter monitor shows a fib hr 92.
[2020-02-22] VITALS (11 sets, daily range): BP systolic 132–190; BP diastolic 72–106
--- NOTE | 2020-02-22 02:00 | NUR ---
restingquietly. resps even & unlabored. no apparent distress.
--- NOTE | 2020-02-22 04:00 | NUR ---
resting quietly. resps even & unlabored. no apparent distress.
--- NOTE | 2020-02-22 06:00 | NUR ---
no acute change in condition this shift. air sampling and monitoring shows a fib hr 76.
--- NOTE | 2020-02-22 06:45 | NUR ---
RECEIVED REPORT FROM JERMAIN BORREGO. CARE ASSUMED.
--- NOTE | 2020-02-22 07:00 | NUR ---
PT RESTING IN BED AWAKE. PT IS ALERT AND ORIENTED X3. SHIFT ASSESSMENT COMPLETED AT THIS TIME. IV PATENT X2. CALL LIGHT IN REACH. WILL CONTINUE TO MONITOR.
--- NOTE | 2020-02-22 07:40 | NUR ---
PT SET UP FOR AM MEAL.
--- NOTE | 2020-02-22 09:00 | NUR ---
DR NICOLAS AT BEDSIDE AT THIS TIME.
--- NOTE | 2020-02-22 10:00 | NUR ---
PT RESTING IN BED WATCHING TV. RESP ARE EVEN AND UNLABORED. NO DISTRESS NOTED CALL LIGHT IN REACH. WILL CONTINUE TO MONITOR.
--- NOTE | 2020-02-22 11:30 | NUR ---
PT SET UP FOR NOON MEAL
--- NOTE | 2020-02-22 12:41 | NUR ---
PT RESTING IN BED AWAKE AND WATCHING TV. RESP ARE EVEN AND UNLABORED. NO DISTRESS NOTED. CALL LIGHT IN REACH. WILL CONTINUE TO MONITOR.
--- NOTE | 2020-02-22 13:53 | NUR ---
REPORT CALLED TO SALMA JACOBSON ON [facility] [place].
--- NOTE | 2020-02-22 14:10 | NUR ---
PT TO [facility] VIA WHEELCHAIR ACCOMPANIED BY BERNA SAXENA. PT IN STABLE CONDITION.
--- NOTE | 2020-02-22 18:47 | NUR ---
PT REMAINS AT REST IN THE BED, NO DISTRESS, NO COMPLAINTS.
--- NOTE | 2020-02-22 21:03 | NUR ---
ASSESSMENT COMPLETED. NO DISTRESS NOTED; DENIES NEEDS/PAIN. NO SOB NOTED AND DENIES COUGH. REPORTS BM TODAY. ENCOURAGED TO CALL FOR ANY NEEDS. CALL LIGHT IS IN REACH.
--- NOTE | 2020-02-22 23:49 | NUR ---
PT. MEDICATED WITH ORDERED PRN APRESOLINE FOR ELEVATED B/P 186/104; WILL REASSESS. PT. DENIES NEEDS. CALL LIGHT IS IN REACH.
[2020-02-23 00:39] VITALS: BP 158/75
--- NOTE | 2020-02-23 00:49 | NUR ---
MEDICATED WITH ORDERED PRN PERCOCET FOR LOPEZ AND KNEE PAIN.
[2020-02-23 04:11] VITALS: BP 134/72
--- NOTE | 2020-02-23 04:11 | NUR ---
PT. RESTING IN BED WITH NO DISTRESS NOTED; DENIES NEEDS/PAIN. VSS. NO DISTRESS NOTED; ENCOURAGED TO CALL FOR ANY NEEDS. AM LABS OBTAINED.
[2020-02-23 06:02] LABS: HEMATOCRIT 39.4 % (37.0-47.0); HEMOGLOBIN 12.5 g/dl (12.0-16.0); IMMATURE GRANULOCYTES 0.2 % (0.0-5.0); MEAN CELL VOLUME 87.9 fL CALC (80.0-100.0); MEAN CORPUSCULAR HGB 27.9 pG CALC (26.0-32.0); MEAN CORPUSCULAR HGB CONC 31.7 g/dL CAL (32.0-36.0); NEUT# 9.65 thou/uL (2.00-7.15); RED BLOOD COUNT 4.48 mill/uL (4.20-5.60); RED CELL DISTRI WIDTH 13.6 % (11.5-15.5)
[2020-02-23 06:10] LABS: ALBUMIN 3.7 g/dL (3.2-5.0); ALKALINE PHOSPHATASE 88 u/l (38-126); ANION GAP 10 (6-22 (CALC)); BILIRUBIN, TOTAL 0.5 mg/dL (0.0-1.4); BUN 22 mg/dL (8-23); BUN/CREATININE RATIO 31 (12-20 (CALC)); C-REACTIVE PROTEIN 0.9 mg/dL (0-0.9); CARBON DIOXIDE 29 mmol/l (22-30); CHLORIDE 101 mmol/l (95-108); CREATININE 0.7 mg/dL (0.5-1.0); GFR > 60 ML/MIN (>=60 (CALC)); GFR FOR AFR.AMER. > 60 ML/MIN (>=60 (CALC)); POTASSIUM 3.2 mmol/l (3.5-5.1); SGOT/AST 42 u/l (9-36); SODIUM 137 mmol/l (137-146); TOTAL PROTEIN 6.5 g/dL (6.3-8.2)
[2020-02-23 07:45] VITALS: BP 139/86
--- NOTE | 2020-02-23 09:00 | NUR ---
PT IS ALERT AND ORIENTED X 3. LUNGS CLEAR, RA. PT AMBULATORY IN ROOM WITH STEADY GAIT. PT PROVIDED SUPPLEMENTAL POTASSIUM PER 3.2 LEVEL. NO COMPLAINTS, NO EVIDENCE OF DISTRESS.
--- NOTE | 2020-02-23 10:06 | NUR ---
02/22/20 PT screen Patient would benefit from intervention if medical is in agreement
[2020-02-23 10:40] VITALS: BP 133/75
[2020-02-23] MEDS ORDERED: ZITHROMAX250 MG PO (10:56)
--- NOTE | 2020-02-23 14:49 | NUR ---
PT HAS BEEN SEEN BY DR SANDERS AND [employer] THIS MORNING, HAS BEEN DISCHARGED TO HOME. PT DID COMPLETE A 6 MINUTE WALK TEST PRIOR TO DISCHARGE, LOWEST SAT WAS 94%. PT DID HAVE HOME HEALTH ORDER. PT VERBALIZED UNDERSTANDING OF DC INSTRUCTIONS, TAKEN BY WHEELCHAIR TO LOBBY. PT LEAVES [facility] IN STABLE CONDITION, NO DISTRESS, NO COMPLAINTS.
== END 2020-02-23 14:30 | disposition home health service (06) | DRG 193 ==
LOC: ED 08:26 → ED-I 12:29 → ED 12:39 → ED-I 12:40 → MS2 12:40 → ICU 12:40 → MS2 02-22 14:08
PROVIDERS: Student in an Organized Health Care Education/Training Program; ADMIT Internal Medicine; ATTEND Internal Medicine
PROC: 5A09357 Assistance with Respiratory Ventilation, Less than 24 Consecutive Hours, Continuous Positive Airway Pressure (ICD-10-PCS; principal; 2020-02-20)
DX: J18.9 Pneumonia, unspecified organism (principal); J96.01 Acute respiratory failure with hypoxia; I16.0 Hypertensive urgency; I10 Essential (primary) hypertension; I48.0 Paroxysmal atrial fibrillation; E11.9 Type 2 diabetes mellitus without complications; Z79.84 Long term (current) use of oral hypoglycemic drugs; Z95.5 Presence of coronary angioplasty implant and graft; Z79.01 Long term (current) use of anticoagulants
CPT/HCPCS: J3475; Q9967

== ENCOUNTER 2020-12-31 10:33 | Inpatient (IN) | payer MEDICARE ==
[2020-12-31] VITALS (15 sets, daily range): BP systolic 111–148; BP diastolic 55–77
[~2020-12-31] VITALS: Ht 152.4 cm; Wt 97.0 kg
[~2020-12-31 10:33] MED LIST changes: +COZAAR50 MG PO; +FUROSEMIDE20 MG PO; +ZITHROMAX250 MG PO
--- NOTE | 2020-12-31 10:50 | NUR ---
PT WHEELED BACK TO ROOM AND IMMEDIATLY CHANGED INTO GOWN. PT PLACED ON OXYGEN DUE TO O2 SAT OF 80%.
[2020-12-31 11:03] LABS: HEMATOCRIT 36.6 % (37.0-47.0); HEMOGLOBIN 11.5 g/dl (12.0-16.0); IMMATURE GRANULOCYTES 0.3 % (0.0-5.0); MEAN CELL VOLUME 89.5 fL CALC (80.0-100.0); MEAN CORPUSCULAR HGB 28.1 pG CALC (26.0-32.0); MEAN CORPUSCULAR HGB CONC 31.4 g/dL CAL (32.0-36.0); NEUT# 13.4 thou/uL (2.00-7.15); RED BLOOD COUNT 4.09 mill/uL (4.20-5.60)
[2020-12-31] MEDS ORDERED: GABAPENTIN100 MG PO (11:08)
[2020-12-31] MEDS ORDERED: OLMESARTAN MEDO40 MG (11:08)
[2020-12-31] MEDS ORDERED: GLIPIZIDE5 MG PO (11:09)
[2020-12-31] MEDS ORDERED: SERTRALINE HCL50 MG PO (11:10)
[2020-12-31] MEDS ORDERED: AMLODIPINE BESY10 MG PO (11:10)
[2020-12-31] MEDS ORDERED: HYDROCHLOROTH12.5 M1 PO (11:11)
[2020-12-31] MEDS ORDERED: FLECAINIDE50 MG PO (11:12)
[2020-12-31] MEDS ORDERED: METOPROL TAR25 MG PO (11:12)
[2020-12-31] MEDS ORDERED: METFORMIN HCL1000 MG PO (11:13)
[2020-12-31] MEDS ORDERED: LOVASTATIN40 M1 PO (11:14)
[2020-12-31] MEDS ORDERED: ELIQUIS5 MG PO (11:14)
[2020-12-31 11:15] LABS: ALBUMIN 4.7 g/dL (3.2-5.0); AMYLASE 85 u/l (30-110); ANION GAP 15 (6-22 (CALC)); BILIRUBIN, TOTAL 0.6 mg/dL (0.0-1.4); BUN 24 mg/dL (8-23); BUN/CREATININE RATIO 28 (12-20 (CALC)); CARBON DIOXIDE 30 mmol/l (22-30); CHLORIDE 99 mmol/l (95-108); CREATININE 0.8 mg/dL (0.5-1.0); GFR > 60 ML/MIN (>=60 (CALC)); GFR FOR AFR.AMER. > 60 ML/MIN (>=60 (CALC)); LIPASE 129 u/l (23-300); POTASSIUM 3.8 mmol/l (3.5-5.1); SODIUM 141 mmol/l (137-146); TOTAL PROTEIN 7.7 g/dL (6.3-8.2)
[2020-12-31] MEDS ORDERED: IRON SLOW RELEA45 MG PO (11:15)
[2020-12-31 11:20] LABS: ALKALINE PHOSPHATASE 133 u/l (38-126); SGOT/AST 76 u/l (9-36)
[2020-12-31 11:29] LABS: ACT PARTIAL THROMBO TIME 29.3 SECONDS (20.0-32.5); INTERNATIONAL NORMALIZED RATIO 1.1 RATIO (0.7-1.3); PROTHROMBIN TIME 11.6 SECONDS (9.0-12.5)
--- NOTE | 2020-12-31 11:30 | NUR ---
PLACED PT ON BIPAP PER MD ORDER FOR ABG RESULTS AND INCREASED WOB. BLADE BENDER FURNACE TENDER TO MONITOR. PT IN CT CURRENTLY.
[2020-12-31 11:32] LABS: D-DIMER 0.76 mg/L (0.19-0.60)
[2020-12-31 11:45] LABS: TSH, 3RD GENERATION 4.95 uIU/mL (0.47 - 4.68)
--- NOTE | 2020-12-31 12:00 | NUR ---
Reassessment of patient completed. No distress noted.
--- NOTE | 2020-12-31 13:00 | NUR ---
PT ADMITTED TO ICU. REPORT CALLED TO BRANNON JACOBSON.
--- NOTE | 2020-12-31 13:08 | NUR ---
PT ARRIVED TO ICU ROOM 7 VIA STRETCHER IN ER STAFF; ALERT AND ORIENTED X3; RESPIRATIONS EVEN AND UNLABORED ON NON REBREATHER. STOOD AND AMBULATED TO BSC TO VOID AND THEN TO BED; RESPIRATIONS SLIGHTLY LABORED WITH EXERTION; SPO2 86-87 WHEN TALKING; BIPAP PLACED BY RT 16/8 60% FIO2. DENIES PAIN CURRENTLY. LUNGS ARE CLEAR. #20G TO RAC APPEARS HEALTHY AND FLUSHES. ORIENTED TO ROOM AND CALL LIGHT SYSTEM. POC DISCUSSED; PT ENCOURAGED TO VERBALIZE CONCERNS. SAFETY MEASURES IN PLACE. CALL LIGHT WITHIN REACH.
--- NOTE | 2020-12-31 13:26 | NUR ---
TRANSPORTED PT TO ICU. NAD. VSS. PT COMFORTABLE AND CHRISTOPHER NIV WELL AT THIS TIME. RN IN ROOM C PT. NAD. VSS. STABILIZER OPERATOR TO MONITOR.
--- NOTE | 2020-12-31 17:15 | NUR ---
RT AT BEDSIDE TO REMOVE BIPAP MASK; PT NOW ON 3L VIA NC; SPO2 92%. SITTING UP FOR DINNER. IV FLUIDS NOW INFUSING AT 80 ML/HR PER ORDER. CALL LIGHT WITHIN REACH.
--- NOTE | 2020-12-31 17:41 | NUR ---
PLACED PT ON 3LPM NC PER DINNER. PT CHRISTOPHER WELL AT THIS TIME. RN AWARE. PT STATES SHE FEELS MUCH BETTER CURRENTLY. SECTION SUPERVISOR TO MONITOR.
--- NOTE | 2020-12-31 19:45 | NUR ---
BEDRESTING. WATCHING TV. STATES BREATHING BETTER. RESP EVEN AND NONLABORED. O2 AT 3L VIA N/C-TOLERATING WELL. NO COUGH NOTED
--- NOTE | 2020-12-31 21:15 | NUR ---
HS MEDS GIVEN RX. HAS HAD ELIQUES X 2 DOSES TODAY. NEXT DOSE DUE IN AM. HOME MEDSICATIONS LABELED AND TO GO TO PHARMACY IN AM. NS INFUSING RX. EDUCATION CONCERNING MEDICATION ADMINISTRATION PROVIDED-INCLUDING INSULIN WHILE ON STERIODS IN HOSPITAL. PT ALREADY AWARE OF THIS
--- NOTE | 2020-12-31 23:00 | NUR ---
WATCHING TV. RESP EVEN AND NONLABORED. NO COUGH NOTED. N/C AT THIS TIME
[2021-01-01] VITALS (22 sets, daily range): BP systolic 124–193; BP diastolic 61–86
--- NOTE | 2021-01-01 00:52 | NUR ---
BEDRESTING. DOZING. RESP EVEN AND NONLABORED. SAT LOW 90'S ON 3L PER N/C
--- NOTE | 2021-01-01 02:10 | NUR ---
BEDRESITNG. EYES CLOSED. TV OFF
[2021-01-01 05:45] LABS: HEMATOCRIT 33.2 % (37.0-47.0); HEMOGLOBIN 10.3 g/dl (12.0-16.0); IMMATURE GRANULOCYTES 1.1 % (0.0-5.0); MEAN CELL VOLUME 88.8 fL CALC (80.0-100.0); MEAN CORPUSCULAR HGB 27.5 pG CALC (26.0-32.0); RED BLOOD COUNT 3.74 mill/uL (4.20-5.60); RED CELL DISTRI WIDTH 13.1 % (11.5-15.5)
[2021-01-01 06:09] LABS: ALKALINE PHOSPHATASE 90 u/l (38-126); ANION GAP 12 (6-22 (CALC)); BILIRUBIN, TOTAL 0.6 mg/dL (0.0-1.4); BUN 29 mg/dL (8-23); BUN/CREATININE RATIO 38 (12-20 (CALC)); CARBON DIOXIDE 28 mmol/l (22-30); CHLORIDE 101 mmol/l (95-108); CREATININE 0.8 mg/dL (0.5-1.0); GFR > 60 ML/MIN (>=60 (CALC)); GFR FOR AFR.AMER. > 60 ML/MIN (>=60 (CALC)); POTASSIUM 3.5 mmol/l (3.5-5.1); SGOT/AST 39 u/l (9-36); SODIUM 138 mmol/l (137-146); TOTAL PROTEIN 6.7 g/dL (6.3-8.2)
--- NOTE | 2021-01-01 07:51 | NUR ---
REPORT RECEIVED FROM INDIRA CONNER. PT RESTING IN BED SEMI FOWLERS WITH EYES CLOSED AND NO SIGNS OF DISTRESS; AWAKENS TO LOUD VERBAL STIMULI; DROWSY AND ORIENTED. DENIES PAIN AND SOB; LUNGS ARE CLEAR; RESPIRATIONS EVEN AND UNLABORED ON 3L VIA NC; SPO2 98%. OXYGEN TITRATED DOWN TO 2L AT THIS TIME. TRACE ANKLE EDEMA. POC REVIEWED; PT ENCOURAGED TO VERBALIZE CONCERNS. STATES UNDERSTANDING. SAFETY MEASURES IN PLACE. CALL LIGHT WITHIN REACH.
--- NOTE | 2021-01-01 09:15 | NUR ---
DR. SANDOVAL AT BEDSIDE.
--- NOTE | 2021-01-01 11:12 | NUR ---
LASIX GIVEN PER MD ORDER; PT UP TO BSC VOIDING CLEAR YELLOW URINE; 900ML EMPTIED AT THIS TIME. PT RECEIVED ROCEPHIN AND ZITHROMAX; NORMAL SALINE NOW INFUSING AT 80ML/HR; IV SITE APPEARS HEATLHY. SON CALLED FOR UPDATE; QUESTIONS ANSWERED TO SATISFACTION.
--- NOTE | 2021-01-01 13:05 | NUR ---
OXYGEN TITRATED DOWN TO 1L VIA NC AT 1200; SPO2 92-96%. PT SITTING UP IN BED TALKING ON CELL PHONE; LESS DROWSY.
--- NOTE | 2021-01-01 16:04 | NUR ---
VISITOR AT BEDSIDE.
--- NOTE | 2021-01-01 18:10 | NUR ---
SITTING UP IN BED TALKING ON CELL PHONE; ATE 100% OF DINNER. ACCU CHECK BEFORE DINNER 247; COVERED WITH 2 UNITS OF INSULIN. NO OTHER REQUESTS OR CONCERNS AT THIS TIME. CALL LIGHT WITHIN REACH.
--- NOTE | 2021-01-01 19:03 | NUR ---
REPORT FROM BRANNON JACOBSON. ASSUMED PT CARE.
--- NOTE | 2021-01-01 20:43 | NUR ---
PT NOTED SITTING UP IN BED WATCHING TV. ALERT AND ORIENTED. RESPIRATIONS EVEN AND UNLABORED. O2 @ 1L/M VIA NC, SAT 93% PT DENIES ANY PAIN OR DISCOMFORT. DISCUSSED POC. PT VERBALIZED UNDERSTANDING. MONITORS IN PLACE. IV SITE APPEARS HEALTHY WITH IVF INFUSING. NO CURRENT WANTS OR NEEDS VOICED AT THIS TIME. CALL LIGHT WITHIN REACH. WILL CONTINUE TO MONITOR.
--- NOTE | 2021-01-01 23:23 | NUR ---
PT MEDICATED FOR HEADACHE WITH PRN APAP BY LUPE BORREGO. NO APPARENT DISTRESS NOTED. PT DENIES ANY OTHER PAIN OR DISCOMFORT. MONITORS IN PLACE. SATS 96% ON 1L/M VIA LA. CALL LIGHT WITHIN REACH. WILL CONTINUE TO MONITOR.
[2021-01-02] VITALS (7 sets, daily range): BP systolic 143–178; BP diastolic 68–89
--- NOTE | 2021-01-02 03:44 | NUR ---
PT RESTING IN BED WITH EYES CLOSED. NO APPARENT DISTRESS NOTED. RESPIRATIONS EVEN AND UNLABORED. 02 @ 1L/M VIA NC. MONITORS IN PLACE. IVF INFUSING WITHOUT DIFFICULTY. CALL LIGHT WITHIN REACH. WILL CONTINUE TO MONITOR.
[2021-01-02 05:58] LABS: HEMATOCRIT 34.2 % (37.0-47.0); HEMOGLOBIN 10.6 g/dl (12.0-16.0); IMMATURE GRANULOCYTES 1.6 % (0.0-5.0); MEAN CORPUSCULAR HGB 27.9 pG CALC (26.0-32.0); NEUT# 14.13 thou/uL (2.00-7.15); RED BLOOD COUNT 3.8 mill/uL (4.20-5.60); RED CELL DISTRI WIDTH 13.3 % (11.5-15.5)
[2021-01-02 06:15] LABS: ANION GAP 11 (6-22 (CALC)); BUN 24 mg/dL (8-23); BUN/CREATININE RATIO 38 (12-20 (CALC)); CARBON DIOXIDE 29 mmol/l (22-30); CHLORIDE 103 mmol/l (95-108); CREATININE 0.6 mg/dL (0.5-1.0); GFR > 60 ML/MIN (>=60 (CALC)); GFR FOR AFR.AMER. > 60 ML/MIN (>=60 (CALC)); MAGNESIUM 1.7 mg/dL (1.6-2.3); POTASSIUM 3.6 mmol/l (3.5-5.1); SODIUM 139 mmol/l (137-146)
--- NOTE | 2021-01-02 07:04 | NUR ---
Patient is screened fro PT intervention and no needs are identified at this time
--- NOTE | 2021-01-02 07:37 | NUR ---
PT IS ALERT, ORIENTED X 3, SEEN AT REST IN THE BED IN NO DISTRESS. LUNGS CLEAR, 1 LPM NC. BM TODAY. PT DENIES SHORTNESS OF BREATH.
--- NOTE | 2021-01-02 10:40 | NUR ---
PT UP TO BSC THIS MORNING, ABLE TO TRANFER HERSELF WELL. NO DISTRESS, NO COMPLAINT OF SHORTNESS OF BREATH.
--- NOTE | 2021-01-02 11:05 | NUR ---
RECIEVED REPORT FROM INDIRA MARSH
--- NOTE | 2021-01-02 11:11 | NUR ---
REPORT PROVIDED TO SYLVIA. PT TO ROOM 263 SOON. PT REMAINS ON 1 LPM NC, NO REPORT OF SHORTNESS OF BREATH.
--- NOTE | 2021-01-02 12:15 | NUR ---
PT FINISHED HER MEAL, TAKEN TO MED/SURG BY WHEELCHAIR.
--- NOTE | 2021-01-02 12:35 | NUR ---
PT ARRIVED TO [facility] ROOM 263 VIA WHEELCHAIR IN STABLE CONDITION. PT IS A/O X3. ASSESSMENT AND VITALS COMPLETED. REPSIRATIONS ARE EVEN AND UNLABORED ON 1L NC. HEART RHYTHM IRREGULAR WITH TELE MONITORING IN PLACE, AFIB PER ER MONITORING. BOWEL SOUNDS ACTIVE. RADIAL AND PEDAL PULSES STRONG. #20G IN RAC INFUSING WITH IVF PER ORDER, SITE REMAINS HEALTHY AND PATENT. PT DENIES OF ANY PAINS OR DISCOMFORTS.PT ORIENTED TO ROOM AND CALL SYSTEM. ALL SAFETY PRECAUTIONS ARE IN PLACE WITH CALL LIGHT IN REACH. WILL CONTINUE TO MONITOR.
--- NOTE | 2021-01-02 16:40 | NUR ---
PT RESTING IN SEMI FOWLERS POSITION. PT REMAINS A/O X3. REPSIRATIONS ARE EVEN AND UNLABORED ON 1L NC.TELE MONITORING IN PLACE, AFIBE PER ER MONITORING #20G IN RAC INFUSING WITH IVF PER ORDER, SITE REMAINS HEALTHY AND PATENT. ACCUCHECK RESULTING IN 360. COVERAGE TO BE ADMINISTERED. PT DENIES OF ANY OTHER NEEDS OR DISCOMFORTS AT THIS TIME. ALL SAFETY PRECAUTIONS ARE IN PLACE WITH CALL LIGHT IN REACH. WILL CONTINUE TO MONITOR.
--- NOTE | 2021-01-02 19:00 | NUR ---
1900-Pt report and handoff given by Nemo. Pt stable at time of assessment. Denies pain and denies complaints at this time. Bed low and locked. Call light and phone within reach. Will come back to discuss plan of care and any pt concerns. All safety precautions are in place.
--- NOTE | 2021-01-02 23:00 | NUR ---
2300-Pt in bed sleeping. No signs and symptoms of distress. Bed low and locked. Call light and phone within reach. Safety precautions in place. Will continue to monitor frequently during this shift.
[2021-01-03] VITALS: BP 162/85
[2021-01-03 04:00] VITALS: BP 156/98
--- NOTE | 2021-01-03 04:15 | NUR ---
0415-Pt lying in bed resting. Offered toileting to pt ODESSA Renae assisted me. Pt denies pain and discomfort. SENIOR TREASURY ANALYST reports that pt output has been 2800cc since midnight. Pt is taking Lasix. I will pass this information along in report. Pt denies SOB or dizziness. Was off O2 during the night but did reapply after using the bathroom. 02 sat 97%. Pt stable no s.s of distress. Bed low and locked. Call light and phone within reach. Will continue to closely monitor respiatory and cardiac systems.
[2021-01-03 05:37] LABS: IMMATURE GRANULOCYTES 1.6 % (0.0-5.0); MEAN CELL VOLUME 89.6 fL CALC (80.0-100.0); MEAN CORPUSCULAR HGB 27.3 pG CALC (26.0-32.0); MEAN CORPUSCULAR HGB CONC 30.5 g/dL CAL (32.0-36.0); NEUT# 16.19 thou/uL (2.00-7.15); RED BLOOD COUNT 4.79 mill/uL (4.20-5.60); RED CELL DISTRI WIDTH 13.2 % (11.5-15.5)
[2021-01-03 05:52] LABS: HEMATOCRIT 42.9 % (37.0-47.0); HEMOGLOBIN 13.1 g/dl (12.0-16.0)
[2021-01-03 06:03] LABS: ALBUMIN 4.6 g/dL (3.2-5.0); ALKALINE PHOSPHATASE 90 u/l (38-126); ANION GAP 15 (6-22 (CALC)); BILIRUBIN, TOTAL 0.8 mg/dL (0.0-1.4); BUN 20 mg/dL (8-23); BUN/CREATININE RATIO 27 (12-20 (CALC)); CARBON DIOXIDE 27 mmol/l (22-30); CHLORIDE 102 mmol/l (95-108); CREATININE 0.8 mg/dL (0.5-1.0); GFR > 60 ML/MIN (>=60 (CALC)); GFR FOR AFR.AMER. > 60 ML/MIN (>=60 (CALC)); POTASSIUM 3.8 mmol/l (3.5-5.1); SGOT/AST 30 u/l (9-36); SODIUM 140 mmol/l (137-146); TOTAL PROTEIN 7.7 g/dL (6.3-8.2)
--- NOTE | 2021-01-03 07:00 | NUR ---
RECIEVED REPORT FROM INDIRA PAYTON
[2021-01-03 07:15] VITALS: BP 157/84
--- NOTE | 2021-01-03 07:47 | NUR ---
PT SITTING UP IN BED EATING BREAKFAST. PT IS A/O X3. ASSESSMENT AND VITALS OBTAINED. BP 157/84, HR 69, O2 94% ON ROOM AIR. REPSIRATIONS ARE EVEN AND UNLABORED WITH NO DISRTESS NOTED. LUNG SOUNDS ARE CLEAR. HEART RHYTHM IS IRREGULAR WITH HEART MONITORING IN PLACE, AFIB PER ER MONITORING. BOWEL SOUNDS ARE ACTIVE. #20G IN RAC INFUSING WITH IVF PER ORDER, SITE REMAINS HEALTHY AND PATENT. SKIN IS INTACT. PT DENEIS OF ANY PAINS OR DISCOMFORTS AT THIS TIME. ACCHECK REUSLTING IN 200, COVERAGE ADMINISTERED. ALL SAFETY PRECAUTIONS ARE IN PLACE WITH CALL LIGHT IN REACH. WILL CONTINUE TO MONITOR.
--- NOTE | 2021-01-03 08:46 | NUR ---
DR SANDOVAL AT BEDSIDE
[2021-01-03 10:45] VITALS: BP 142/82
--- NOTE | 2021-01-03 11:54 | NUR ---
PT SITTING UP IN BED EATING LUNCH. REPSIRATIONS ARE EVEN AND UNLABORED ON ROOM AIR. #20G IN RAC INFUSING IWTH IVF PWER ORDER, SITE REMAINS HEALTHY AND PATENT.TELE MONITORING IN PLACE. PT DENEIS OF ANY NEEDS AT THIS TIME. ALL SAFETY PRECAUTIONS ARE IN PLACE WITH CALL LIGHT IN REACH. WILL CONTINUE TO MONITOR.
[2021-01-03 15:20] VITALS: BP 152/91
[2021-01-03 19:00] VITALS: BP 148/98
--- NOTE | 2021-01-03 20:00 | NUR ---
PT RESTING IN BED UPON ARRIVAL TO THE UNIT. BREATHING EVEN AND UNLABORED. ASSESSMENT COMPLETE, SEE ASSESSMENT SECTION. NO COMPLAINTS VOICCED AT THIS TIME. SAFETY PRECAUTIONS IN PLACE, BED IN LOWEST POSITION, CALL LIGHT WITHIN REACH. WILL CONTINUE TO MONITOR.
[2021-01-04] VITALS: BP 150/85
--- NOTE | 2021-01-04 00:31 | NUR ---
PT RESTING QUIETLY AT THIS TIME. B/P SLIGHTLY ELEVATED, DECREASED IV FLUIDS T 10ML/HR WILL RECHECK B/P IN ONE HOUR.
[2021-01-04 04:00] VITALS: BP 182/100
--- NOTE | 2021-01-04 04:09 | NUR ---
PT RESTING IN BED WITH HER EYES CLOSED. DENIES PAIN AT THIS TIME. DENIES COMPLAINTS AT THIS TIME. BREATHNG EVEN AND UNLABORED. SAFETY PRECAUTIONS IN PLACE. WILL MONITOR
--- NOTE | 2021-01-04 04:27 | NUR ---
UPON 0400 VTAL SIGNS CHECK NOTED THAT PT'S B/P WAS ELEVATED, WHEN CHECKED MANUALLY B/P 182/100. ADMINSTERED COZARR AND NORVASC EARLY, ORIGINALLY SCHEDULED FOR TODAY AT 0900, WILL REASSESS B/P IN 30MIN FOR EFFECTIVENESS. MD HOWELL.
[2021-01-04 05:00] VITALS: BP 160/80
--- NOTE | 2021-01-04 06:25 | NUR ---
SPOKE WITH PHYSCICIAN REGARDIG CONTINUED HTN, NEW ORDER RECIVED FOR HYDRALAZINE 10MG IV Q6HRS FOR B/P EQUAL OR GREATER TO 160/90. HYDRALAZINE ADMINSTERED FOR HTN. WILL MONITOR FOR EFFECTIVENESS.
--- NOTE | 2021-01-04 07:00 | NUR ---
RECIEVED REPORT FROM ELMO NASH
[2021-01-04 07:17] VITALS: BP 138/77
--- NOTE | 2021-01-04 07:54 | NUR ---
PT SITTING UP IN BED. PT IS A/O X3. ASSESSMENT AND VITALS COMPLETED. BP 138/77, HR 83, O2 94% ON ROOM AIR. RESPIRATIONS ARE EVEN AND UNLABORED WITH NO DISTRESS NOTED. LUNG SOUNDS ARE CLEAR. HEART RHYTHM IS IRREGULAR WITH TELE IN PLACE, AFIB PER ER MONITORING. BOWEL SOUNDS ACTIVE. #20G IN RAC INFUSING WITH IVF PER ORDER, SITE REMAINS HEALTHY AND PATENT. SKIN INTACT.ACCUCHEK RESULTING IN 195, COVERAGE ADMINISTERED. PT DENIES OF ANY PAINS OR DISCOMFORTS AT THIS TIME. ALL SAFETY PRECAUTIONS ARE IN PLACE WITH CALL LIGHT IN REACH. WILL CONTINUE TO MONITOR.
--- NOTE | 2021-01-04 09:00 | NUR ---
DR SANDOVAL AT BESIDE
--- NOTE | 2021-01-04 09:20 | NUR ---
LAB AT BEDSIDE
[2021-01-04 09:34] LABS: HEMATOCRIT 41.5 % (37.0-47.0); HEMOGLOBIN 13.1 g/dl (12.0-16.0); IMMATURE GRANULOCYTES 2.1 % (0.0-5.0); MEAN CELL VOLUME 87.7 fL CALC (80.0-100.0); MEAN CORPUSCULAR HGB 27.7 pG CALC (26.0-32.0); MEAN CORPUSCULAR HGB CONC 31.6 g/dL CAL (32.0-36.0); NEUT# 14.25 thou/uL (2.00-7.15); RED BLOOD COUNT 4.73 mill/uL (4.20-5.60); RED CELL DISTRI WIDTH 13.1 % (11.5-15.5)
[2021-01-04 10:02] LABS: ANION GAP 14 (6-22 (CALC)); BUN 27 mg/dL (8-23); BUN/CREATININE RATIO 42 (12-20 (CALC)); CARBON DIOXIDE 26 mmol/l (22-30); CHLORIDE 98 mmol/l (95-108); CREATININE 0.6 mg/dL (0.5-1.0); GFR > 60 ML/MIN (>=60 (CALC)); GFR FOR AFR.AMER. > 60 ML/MIN (>=60 (CALC)); MAGNESIUM 1.5 mg/dL (1.6-2.3); POTASSIUM 3.5 mmol/l (3.5-5.1); SODIUM 135 mmol/l (137-146)
[2021-01-04 10:30] VITALS: BP 142/85
--- NOTE | 2021-01-04 10:30 | NUR ---
TELE MONITORING REMOVED PER ORDER
[2021-01-04] MEDS ORDERED: LASIX 20 MG TAB20 MG PO (10:42)
[2021-01-04] MEDS ORDERED: KEFLEX500 MG PO (10:42)
[2021-01-04] MEDS ORDERED: PREDNISONE10 MG PO (10:42)
[2021-01-04] MEDS ORDERED: MEDDOSEPAK PO (11:20)
--- NOTE | 2021-01-04 12:23 | NUR ---
PT RESTING IN SEMI FOWLERS POSITION. PT IS REMAIN A/O. RESPIRATIONS ARE EVEN AND UNLABORED WITH NO DISTRESS NOTED ON ROOM AIR. #20G IN RAC INFUSING WITH MAG, SITE REMAINS HEALTHY AND PATENT. ACCUCHECK RESULTING IN 333, COVERAGE ADMINISTERED. PT NOTFIED OF DISCHARGE LATER TODAY. PT VERBALIZED UNDERSTANDING. ALL SAFETY PRECAUTIONS ARE IN PLACE WITH CALL LIGHT IN REACH. WILL CONTINUE TO MONITOR.
--- NOTE | 2021-01-04 13:52 | NUR ---
PT EDUCATED ON DISCHARGE INSTRUCTIONS AND NEW MEDICATIONS. PT VERBLAIZED UNDERSTANDING. #20G IN RAC REMOVED REMOVED WITH CATHATER STILL INTACT. PT DENIES OF ANY QUESTIONS OR CONCERS.WAITING FOR TRANSORTATION. WILL CONTINUE TO MONITOR
--- NOTE | 2021-01-04 14:03 | NUR ---
CLOTHES PROVIDED TO PT BY FAMILY. DRAPERY OPERATOR INFORMED THAT FAMILY WILL BE BACK TO PICK HER UP. ALL SAFETY PRECAUTIONS REMAINS IN PLACE. WILL CONTINUE TO MONITOR
--- NOTE | 2021-01-04 14:50 | NUR ---
Discharge instructions given. Patient verbalizes understanding of same. Discharged in stable condition via Wheelchair to Home with staff. All belongings sent with pt. PT DISCHARGED HOME VIA WHEELCHAIR IN STABLE CONDITION ACCOMPAINED BY INDIRA VALLADARES. PT LEFT WITH ALL DISCHARGE INSTRUCTIONS AND BELONGINGS.
== END 2021-01-04 14:49 | disposition home or self-care (01) | DRG 291 ==
LOC: ED 10:33 → ED-I 12:14 → ED 12:38 → ICU 12:39 → MS2 01-02 12:35
PROVIDERS: Nurse Practitioner; ADMIT Internal Medicine; ATTEND Internal Medicine
PROC: 5A09357 Assistance with Respiratory Ventilation, Less than 24 Consecutive Hours, Continuous Positive Airway Pressure (ICD-10-PCS; principal; 2020-12-31)
DX: I11.0 Hypertensive heart disease with heart failure (principal); J18.9 Pneumonia, unspecified organism; J96.01 Acute respiratory failure with hypoxia; I50.31 Acute diastolic (congestive) heart failure; I48.0 Paroxysmal atrial fibrillation; I25.10 Atherosclerotic heart disease of native coronary artery without angina pectoris; E11.9 Type 2 diabetes mellitus without complications; F32.9 Major depressive disorder, single episode, unspecified; Z95.5 Presence of coronary angioplasty implant and graft; Z79.84 Long term (current) use of oral hypoglycemic drugs; Z79.01 Long term (current) use of anticoagulants; Z20.822 Contact with and (suspected) exposure to COVID-19
CPT/HCPCS: J3475; Q9967

== ENCOUNTER 2021-01-24 07:37 | Emergency (ER) | payer OTHER, MEDICARE, MEDICAID ==
[~2021-01-24] VITALS: Ht 152.4 cm; Wt 98.0 kg
[~2021-01-24 07:37] MED LIST changes: +AMLODIPINE BESY10 MG PO; +FLECAINIDE50 MG PO; +GABAPENTIN100 MG PO; +HYDROCHLOROTH12.5 M1 PO; +IRON SLOW RELEA45 MG PO; +KEFLEX500 MG PO; +LASIX 20 MG TAB20 MG PO; +METFORMIN HCL1000 MG PO; +OLMESARTAN MEDO40 MG; +PREDNISONE10 MG PO
[2021-01-24] MEDS ORDERED: FLEXERIL5 M1 PO (08:57)
[2021-01-24 09:15] VITALS: BP 166/84
== END 2021-01-24 09:32 | disposition home or self-care (01) | DRG 552 ==
LOC: ED 07:37
DX: S16.1XXA Strain of muscle, fascia and tendon at neck level, initial encounter (principal); S80.11XA Contusion of right lower leg, initial encounter; S46.911A Strain of unspecified muscle, fascia and tendon at shoulder and upper arm level, right arm, initial encounter; S20.219A Contusion of unspecified front wall of thorax, initial encounter; S20.01XA Contusion of right breast, initial encounter; S60.222A Contusion of left hand, initial encounter; I10 Essential (primary) hypertension; E11.9 Type 2 diabetes mellitus without complications; I48.91 Unspecified atrial fibrillation; F32.9 Major depressive disorder, single episode, unspecified; V49.40XA Driver injured in collision with unspecified motor vehicles in traffic accident, initial encounter; Z95.5 Presence of coronary angioplasty implant and graft; Z79.01 Long term (current) use of anticoagulants; Z79.84 Long term (current) use of oral hypoglycemic drugs

== ENCOUNTER 2021-09-04 13:23 | Emergency (ER) | payer MEDICARE, MEDICAID ==
[~2021-09-04] VITALS: Ht 160 cm; Wt 100.0 kg
[~2021-09-04 13:23] MED LIST changes: +FLEXERIL5 M1 PO
[2021-09-04] MEDS ORDERED: CLONIDINE0.1 MG PO (13:47)
[2021-09-04] MEDS ORDERED: MAGNESIUM64 MG PO (13:48)
[2021-09-04] MEDS ORDERED: [UNRECOGNIZED DRUG - OTHER] PO (13:49)
[2021-09-04] MEDS ORDERED: FUROSEMIDE20 MG PO (13:49)
[2021-09-04 14:25] LABS: HEMOGLOBIN 11.5 g/dl (12.0-16.0); IMMATURE GRANULOCYTES 0.1 % (0.0-5.0); MEAN CELL VOLUME 90.4 fL CALC (80.0-100.0); MEAN CORPUSCULAR HGB CONC 32.1 g/dL CAL (32.0-36.0); NEUT# 7.57 thou/uL (2.00-7.15); RED BLOOD COUNT 3.96 mill/uL (4.20-5.60); RED CELL DISTRI WIDTH 13.1 % (11.5-15.5)
[2021-09-04 14:26] LABS: HEMATOCRIT 35.8 % (37.0-47.0)
[2021-09-04 14:43] LABS: ALKALINE PHOSPHATASE 106 u/l (38-126); ANION GAP 10 (6-22 (CALC)); BILIRUBIN, TOTAL 0.5 mg/dL (0.0-1.4); BUN 24 mg/dL (8-23); BUN/CREATININE RATIO 23 (12-20 (CALC)); CARBON DIOXIDE 31 mmol/l (22-30); CHLORIDE 103 mmol/l (95-108); GFR 55 ML/MIN (>=60 (CALC)); GFR FOR AFR.AMER. > 60 ML/MIN (>=60 (CALC)); POTASSIUM 4.1 mmol/l (3.5-5.1); SODIUM 139 mmol/l (137-146); TOTAL PROTEIN 7.2 g/dL (6.3-8.2)
[2021-09-04 14:45] LABS: SGOT/AST 55 u/l (9-36)
[2021-09-04 21:55] VITALS: BP 175/75
== END 2021-09-04 21:55 | disposition home or self-care (01) ==
LOC: ED 13:23
PROVIDERS: Emergency Medicine
DX: S46.211A Strain of muscle, fascia and tendon of other parts of biceps, right arm, initial encounter (principal); I10 Essential (primary) hypertension; E11.9 Type 2 diabetes mellitus without complications; I48.91 Unspecified atrial fibrillation; F32.A Depression, unspecified; X50.0XXA Overexertion from strenuous movement or load, initial encounter; Y93.89 Activity, other specified; Y92.009 Unspecified place in unspecified non-institutional (private) residence as the place of occurrence of the external cause; Z79.84 Long term (current) use of oral hypoglycemic drugs; Z95.5 Presence of coronary angioplasty implant and graft; Z79.01 Long term (current) use of anticoagulants

== ENCOUNTER 2021-11-21 19:12 | Emergency (ER) | payer MEDICARE, MEDICAID ==
[~2021-11-21 19:12] MED LIST changes: +MAGNESIUM64 MG PO; +[UNRECOGNIZED DRUG - OTHER] PO
== END 2021-11-21 21:20 | disposition left against medical advice (07) ==
LOC: ED 19:12 → LWOBS 21:19
DX: Z53.21 Procedure and treatment not carried out due to patient leaving prior to being seen by health care provider (principal)

== ENCOUNTER 2022-07-29 12:04 | Emergency (ER) | payer MEDICARE ==
[~2022-07-29] VITALS: Ht 160 cm; Wt 98.6 kg
[2022-07-29 12:56] VITALS: BP 173/91
[2022-07-29 13:01] VITALS: BP 164/99
[2022-07-29 13:16] VITALS: BP 175/96
[2022-07-29 13:31] VITALS: BP 162/96
[2022-07-29 13:46] VITALS: BP 167/92
[2022-07-29 14:01] VITALS: BP 176/107
== END 2022-07-29 14:15 | disposition home or self-care (01) ==
LOC: ED 12:04
DX: S00.511A Abrasion of lip, initial encounter (principal); I10 Essential (primary) hypertension; E11.9 Type 2 diabetes mellitus without complications; I48.91 Unspecified atrial fibrillation; F32.9 Major depressive disorder, single episode, unspecified; X58.XXXA Exposure to other specified factors, initial encounter; Z95.5 Presence of coronary angioplasty implant and graft; Z79.82 Long term (current) use of aspirin; Z79.01 Long term (current) use of anticoagulants; Z79.84 Long term (current) use of oral hypoglycemic drugs

== ENCOUNTER 2022-12-28 10:38 | Emergency (ER) | payer MEDICARE ==
[2022-12-28] VITALS (8 sets, daily range): BP systolic 132–173; BP diastolic 79–99
[~2022-12-28] VITALS: Ht 160 cm; Wt 95.7 kg
[2022-12-28 11:23] LABS: BASO% 0.2 % (0-3); EOS% 0.3 % (0-8); HEMATOCRIT 45.9 % (37.0-47.0); HEMOGLOBIN 14.4 g/dl (12.0-16.0); IMMATURE GRANULOCYTES 0.2 % (0.0-5.0); LYMPH% 15.2 % (15-41); MEAN CELL VOLUME 89.5 fL CALC (80.0-100.0); MEAN CORPUSCULAR HGB 28.1 pG CALC (26.0-32.0); MEAN CORPUSCULAR HGB CONC 31.4 g/dL CAL (32.0-36.0); MONO% 5.6 % (2-13); NEUT# 8.13 thou/uL (2.00-7.15); NEUT% 78.5 % (42-76); RED BLOOD COUNT 5.13 mill/uL (4.20-5.60); RED CELL DISTRI WIDTH 13.5 % (11.5-15.5)
[2022-12-28] MEDS ORDERED: AMLODIPINE BESY PO (11:26)
[2022-12-28] MEDS ORDERED: CLOPIDOGREL75 MG PO (11:26)
[2022-12-28] MEDS ORDERED: KERENDIA10 MG PO (11:27)
[2022-12-28] MEDS ORDERED: GUANFACINE1 MG PO (11:28)
[2022-12-28] MEDS ORDERED: FARXIGA10 MG PO (11:29)
[2022-12-28] MEDS ORDERED: ASPIRIN81 MG PO (11:30)
[2022-12-28 11:35] LABS: ALBUMIN 4.2 g/dL (3.2-5.0); ALKALINE PHOSPHATASE 111 u/l (38-126); ANION GAP 13 (6-22 (CALC)); BILIRUBIN, TOTAL 0.6 mg/dL (0.02-1.3); BUN 21 mg/dL (8-23); BUN/CREATININE RATIO 26 (12-20 (CALC)); CARBON DIOXIDE 25 mmol/l (22-30); CHLORIDE 106 mmol/l (95-108); CREATININE 0.8 mg/dL (0.5-1.0); GFR FOR AFR.AMER. > 60 ML/MIN (>=60 (CALC)); GFR OTHER RACES > 60 ML/MIN (>=60 (CALC)); POTASSIUM 4.2 mmol/l (3.5-5.1); SGOT/AST 59 u/l (9-36); SODIUM 140 mmol/l (137-146); TOTAL PROTEIN 6.8 g/dL (6.3-8.2)
[2022-12-28 11:38] LABS: D-DIMER 0.41 mg/L (0.19-0.60)
[2022-12-28 11:43] LABS: ACT PARTIAL THROMBO TIME 26.3 SECONDS (20.0-32.5); INTERNATIONAL NORMALIZED RATIO 1.1 RATIO (0.7-1.3); PROTHROMBIN TIME 10.6 SECONDS (9.0-12.5)
== END 2022-12-28 13:36 | disposition home or self-care (01) ==
LOC: ED 10:38
PROVIDERS: Family Medicine
DX: R07.9 Chest pain, unspecified (principal); I48.0 Paroxysmal atrial fibrillation; I10 Essential (primary) hypertension; E11.42 Type 2 diabetes mellitus with diabetic polyneuropathy; F32.A Depression, unspecified; Z79.84 Long term (current) use of oral hypoglycemic drugs; Z95.5 Presence of coronary angioplasty implant and graft; Z98.1 Arthrodesis status; Z88.8 Allergy status to other drugs, medicaments and biological substances

== ENCOUNTER 2023-09-30 14:48 | Observation (INO) | payer MEDICARE ==
[2023-09-30] VITALS (25 sets, daily range): BP systolic 92–174; BP diastolic 72–120
[~2023-09-30] VITALS: Ht 160 cm; Wt 94.8 kg
[~2023-09-30 14:48] MED LIST changes: +AMLODIPINE BESY PO; +ASPIRIN81 MG PO; +CLOPIDOGREL75 MG PO; +FARXIGA10 MG PO; +GUANFACINE1 MG PO; +KERENDIA10 MG PO; +LASIX20 MG PO; +TOPROL XL50 MG PO
[2023-09-30 15:36] LABS: BASO% 0.1 % (0-3); EOS% 0.6 % (0-8); HEMOGLOBIN 13.2 g/dl (12.0-16.0); IMMATURE GRANULOCYTES 0.2 % (0.0-5.0); LYMPH% 8.9 % (15-41); MEAN CELL VOLUME 92.1 fL CALC (80.0-100.0); MEAN CORPUSCULAR HGB 28.9 pG CALC (26.0-32.0); MEAN CORPUSCULAR HGB CONC 31.4 g/dL CAL (32.0-36.0); MONO% 5.2 % (2-13); NEUT# 11.96 thou/uL (2.00-7.15); RED BLOOD COUNT 4.56 mill/uL (4.20-5.60); RED CELL DISTRI WIDTH 13.2 % (11.5-15.5)
[2023-09-30 15:46] LABS: INTERNATIONAL NORMALIZED RATIO 1.2 RATIO (0.7-1.3); PROTHROMBIN TIME 11.1 SECONDS (9.0-12.5)
[2023-09-30 15:50] LABS: ALBUMIN 4.1 g/dL (3.2-5.0); ALKALINE PHOSPHATASE 118 u/l (38-126); ANION GAP 12 (6-22 (CALC)); BILIRUBIN, TOTAL 0.5 mg/dL (0.02-1.3); BUN 14 mg/dL (8-23); BUN/CREATININE RATIO 19 (12-20 (CALC)); CARBON DIOXIDE 28 mmol/l (22-30); CHLORIDE 105 mmol/l (95-108); CREATININE 0.7 mg/dL (0.5-1.0); GFR FOR AFR.AMER. > 60 ML/MIN (>=60 (CALC)); GFR OTHER RACES > 60 ML/MIN (>=60 (CALC)); SGOT/AST 54 u/l (9-36); SODIUM 140 mmol/l (137-146)
[2023-09-30] MEDS ORDERED: TRANDATE300 MG PO (20:50)
[2023-09-30] MEDS ORDERED: LEVOTHYROXIN50 MCG PO (20:52)
[2023-09-30] MEDS ORDERED: CYCLOBENZAPRIN7.5 M1 PO (20:55)
[2023-10-01 01:15] LABS: URINE BILIRUBIN - DIPSTICK Negative (NEGATIVE); URINE BLOOD DIPSTICK Negative (NEGATIVE); URINE COLOR Yellow; URINE GLUCOSE - DIPSTICK 500 mg/dL (NEGATIVE); URINE KETONE Negative (NEGATIVE); URINE LEUK ESTERASE Negative (NEGATIVE); URINE NITRITE - DIPSTICK Negative (Negative); URINE PH 5.5 (4.5-8.0); URINE PROTEIN - DIPSTICK Negative (NEG-TRACE); URINE SPECIFIC GRAVITY 1.015; URINE UROBILINOGEN - DIPSTICK 0.2 E.U./dL (0.2)
[2023-10-01 03:34] VITALS: BP 146/82
[2023-10-01 06:27] LABS: BASO% 0.1 % (0-3); HEMATOCRIT 43.4 % (37.0-47.0); HEMOGLOBIN 13.9 g/dl (12.0-16.0); IMMATURE GRANULOCYTES 0.2 % (0.0-5.0); LYMPH% 5.5 % (15-41); MEAN CELL VOLUME 90.6 fL CALC (80.0-100.0); MONO% 0.9 % (2-13); NEUT# 12.16 thou/uL (2.00-7.15); NEUT% 93.3 % (42-76); RED BLOOD COUNT 4.79 mill/uL (4.20-5.60); RED CELL DISTRI WIDTH 13.2 % (11.5-15.5)
[2023-10-01 06:45] VITALS: BP 159/95
[2023-10-01 06:49] LABS: ALBUMIN 4.1 g/dL (3.2-5.0); ALKALINE PHOSPHATASE 124 u/l (38-126); ANION GAP 14 (6-22 (CALC)); BILIRUBIN, TOTAL 0.6 mg/dL (0.02-1.3); BUN 19 mg/dL (8-23); BUN/CREATININE RATIO 24 (12-20 (CALC)); CALCULATED LDLCHOLESTEROL 97 mg/dL (62-129 (CALC)); CARBON DIOXIDE 27 mmol/l (22-30); CHLORIDE 105 mmol/l (95-108); CHOLESTEROL HDL RATIO 3.6 (<4.4 (CALC)); CREATININE 0.8 mg/dL (0.5-1.0); GFR FOR AFR.AMER. > 60 ML/MIN (>=60 (CALC)); GFR OTHER RACES > 60 ML/MIN (>=60 (CALC)); HDL CHOLESTEROL 48 mg/dL (39.0-59.0); MAGNESIUM 1.9 mg/dL (1.6-2.3); POTASSIUM 4.2 mmol/l (3.5-5.1); SGOT/AST 47 u/l (9-36); SODIUM 142 mmol/l (137-146); TOTAL CHOLESTEROL 172 mg/dl (0-199); TOTAL PROTEIN 6.7 g/dL (6.3-8.2); TOTAL TRIGLYCERIDES 136 mg/dl (0-149); VLDL CHOLESTROL 27 mg/dl (0-48 (CALC))
[2023-10-01 10:43] VITALS: BP 154/88
[2023-10-01 15:05] VITALS: BP 156/90
[2023-10-01] MEDS ORDERED: TYLENOL 8 HOUR650 MG PO (15:59)
[2023-10-01] MEDS ORDERED: GUANFACINE1 MG PO (16:00)
[2023-10-01 19:18] VITALS: BP 173/93
[2023-10-02] VITALS (8 sets, daily range): BP systolic 128–172; BP diastolic 63–96
[2023-10-02 04:56] LABS: HEMATOCRIT 43.2 % (37.0-47.0); HEMOGLOBIN 13.6 g/dl (12.0-16.0); MEAN CELL VOLUME 90.8 fL CALC (80.0-100.0); MEAN CORPUSCULAR HGB 28.6 pG CALC (26.0-32.0); MEAN CORPUSCULAR HGB CONC 31.5 g/dL CAL (32.0-36.0); RED BLOOD COUNT 4.76 mill/uL (4.20-5.60); RED CELL DISTRI WIDTH 13.1 % (11.5-15.5)
[2023-10-02 05:16] LABS: ALBUMIN 4.1 g/dL (3.2-5.0); ALKALINE PHOSPHATASE 122 u/l (38-126); ANION GAP 15 (6-22 (CALC)); BILIRUBIN, TOTAL 0.6 mg/dL (0.02-1.3); BUN 29 mg/dL (8-23); BUN/CREATININE RATIO 34 (12-20 (CALC)); CARBON DIOXIDE 27 mmol/l (22-30); CHLORIDE 103 mmol/l (95-108); CREATININE 0.9 mg/dL (0.5-1.0); GFR FOR AFR.AMER. > 60 ML/MIN (>=60 (CALC)); GFR OTHER RACES > 60 ML/MIN (>=60 (CALC)); POTASSIUM 4.2 mmol/l (3.5-5.1); SGOT/AST 42 u/l (9-36); SODIUM 141 mmol/l (137-146); TOTAL PROTEIN 6.8 g/dL (6.3-8.2)
[2023-10-03] VITALS: BP 154/88
[2023-10-03 04:58] VITALS: BP 182/102
[2023-10-03 06:19] LABS: HEMATOCRIT 46.1 % (37.0-47.0); HEMOGLOBIN 14.6 g/dl (12.0-16.0); MEAN CELL VOLUME 89.5 fL CALC (80.0-100.0); MEAN CORPUSCULAR HGB 28.3 pG CALC (26.0-32.0); MEAN CORPUSCULAR HGB CONC 31.7 g/dL CAL (32.0-36.0); RED BLOOD COUNT 5.15 mill/uL (4.20-5.60)
[2023-10-03 06:49] LABS: ALBUMIN 4.3 g/dL (3.2-5.0); ALKALINE PHOSPHATASE 110 u/l (38-126); ANION GAP 12 (6-22 (CALC)); BILIRUBIN, TOTAL 0.7 mg/dL (0.02-1.3); BUN 41 mg/dL (8-23); BUN/CREATININE RATIO 46 (12-20 (CALC)); CARBON DIOXIDE 29 mmol/l (22-30); CHLORIDE 101 mmol/l (95-108); CREATININE 0.9 mg/dL (0.5-1.0); GFR FOR AFR.AMER. > 60 ML/MIN (>=60 (CALC)); GFR OTHER RACES > 60 ML/MIN (>=60 (CALC)); POTASSIUM 4.7 mmol/l (3.5-5.1); SODIUM 138 mmol/l (137-146); TOTAL PROTEIN 7.2 g/dL (6.3-8.2)
[2023-10-03 06:50] VITALS: BP 168/91
[2023-10-03 06:50] LABS: SGOT/AST 92 u/l (9-36)
[2023-10-03 11:14] VITALS: BP 152/95
[2023-10-03] MEDS ORDERED: PREDNISONE10 MG PO (11:29)
[2023-10-03] MEDS ORDERED: AMOX/K CLAV875 M1 PO (11:32)
== END 2023-10-03 13:27 | disposition home or self-care (01) ==
LOC: ED 14:48 → MS2 18:53
PROVIDERS: Emergency Medicine; Student in an Organized Health Care Education/Training Program; ADMIT Student in an Organized Health Care Education/Training Program; ATTEND Student in an Organized Health Care Education/Training Program
DX: J44.1 Chronic obstructive pulmonary disease with (acute) exacerbation (principal); I11.0 Hypertensive heart disease with heart failure; I50.32 Chronic diastolic (congestive) heart failure; E11.9 Type 2 diabetes mellitus without complications; I48.0 Paroxysmal atrial fibrillation; I25.10 Atherosclerotic heart disease of native coronary artery without angina pectoris; E03.9 Hypothyroidism, unspecified; E78.5 Hyperlipidemia, unspecified; Z95.5 Presence of coronary angioplasty implant and graft; Z79.84 Long term (current) use of oral hypoglycemic drugs; Z77.22 Contact with and (suspected) exposure to environmental tobacco smoke (acute) (chronic); Z79.82 Long term (current) use of aspirin; Z79.02 Long term (current) use of antithrombotics/antiplatelets; Z20.822 Contact with and (suspected) exposure to COVID-19
CPT/HCPCS: J1650